=== PATIENT | female | born 1940 | race Caucasian/White ===

== ENCOUNTER → 2016-11-20 | Outpatient (CLI) | payer BC, OTHER ==
[2016-11-20 10:55] LABS: ALT/SGPT 28 U/L (12-78); BLOOD UREA NITROGEN 12 mg/dl (7-18); BUN/CREATININE RATIO 18.2 (10-20); CALCIUM 9.1 mg/dl (8.5-10.1); CARBON DIOXIDE 30 mmol/L (21-32); CHLORIDE 108 mmol/L (98-107); CHOLESTEROL 188 mg/dl (0-200); CREATININE 0.66 mg/dl (0.60-1.20); GLUCOSE 101 mg/dl (70-99); POTASSIUM 3.9 mmol/L (3.5-5.1); SODIUM 144 mmol/L (136-145); TRIGLYCERIDES 86 mg/dl (0-150); VERY LOW DENSITY LIPOPROT CALC 17 mg/dl
[2016-11-20 10:59] LABS: CHOLESTEROL/HDL RATIO 2.4; HDL CHOLESTEROL 77 mg/dl; LDL CHOLESTEROL CALCULATED 94 mg/dl
== END | disposition home or self-care (01) ==
LOC: C.LAB1850 09:15
PROVIDERS: ATTEND Family Medicine
DX: I10 Essential (primary) hypertension (principal); E78.5 Hyperlipidemia, unspecified

== ENCOUNTER → 2017-05-11 | Outpatient (CLI) | payer BC, OTHER ==
--- NOTE | 2017-05-12 07:57 | MAMMOGRAPHY REPORT ---
BILATERAL DIGITAL SCREENING MAMMOGRAM WITH CAD: 05/11/2017 CLINICAL HISTORY: Routine screening. Patient has no complaints. TECHNIQUE: Bilateral CC, MLO and repeat right MLO views were obtained. Current study was also evalua edith with a Computer Aided Detection (CAD) system. COMPARISON: Comparison is made to exams dated: 05/07/2016 mammogram - [facility], mammogram, 10/09/2013 mammogram, 09/19/2012 mammogram, 09/14/2011 mammogram, and 08/21/2010 mammogr am - [facility]. BREAST COMPOSITION: There are scattered areas of fibroglandular density in both breasts. FINDINGS: Surgical clips project over the left axilla. There are minimal vascular calcifications and a few benign-appearing calcifications in the breasts. No suspicious mass, architectural distortion or cluster of microcalcifications is seen. IMPRESSION: ACR BI-RADS CATEGORY 1: NEGATIVE There is no mammographic evidence of malignancy. A 1 year screening mammogram is recommended. The pa tient will receive written notification of the results. Approximately 10% of breast cancers are not detected with mammography. A negative mammographic report should not delay biopsy if a clinically suggestive mass is present. Shona Vivas M.D. ay/:05/11/2017 15:30:27 Photocopying Equipment Mechanic: Muriel SANTIAGO)(Ludmila), [facility] letter sent: Normal 1/2 BI-RADS Code: ACR BI-RADS Category 1: Negative
== END | disposition home or self-care (01) ==
LOC: C.MAMM 10:14
PROVIDERS: ATTEND Obstetrics & Gynecology
DX: Z12.31 Encounter for screening mammogram for malignant neoplasm of breast (principal)

== ENCOUNTER 2024-05-19 14:01 | Inpatient (IN) ==
[2024-05-19 15:22] LABS: Basophils # (auto) 0.03 K/uL (0.00-0.20); Basophils % (auto) 0.3 %; Hematocrit (blood only) 40.1 % (37.0-47.0); Immature Granulocytes # (auto) 0.05 K/uL (0.01-0.20); Immature Granulocytes % (auto) 0.5 %; Lymphocytes # (auto) 0.82 K/uL (1.20-3.40); Mean Corpuscular Hemoglobin 31.1 pg (25.0-34.0); Mean Corpuscular Hgb Conc 32.4 g/dL (32.0-36.0); Mean Corpuscular Volume 95.9 fL (80.0-100.0); Mean Platelet Volume 9.9 fL (9.4-12.4); Monocytes # (auto) 0.96 K/uL (0.11-0.59); Monocytes % (auto) 9.4 %; Neutrophils # (auto) 8.38 K/uL (1.40-6.50); Neutrophils % (auto) 81.8 %; Platelet Count 219 K/uL (130-400); RDW Coefficient of Variation 11.9 % (11.5-14.5); RDW Standard Deviation 41.3 fL (36.4-46.3); Red Blood Count 4.18 M/uL (4.20-5.40); White Blood Count 10.24 K/ul (4.8-10.8)
[2024-05-19 15:38] LABS: Alanine Aminotransferase 12 U/L (7-52); Albumin Globulin Ratio 1.3 (0.9-2); Albumin Level 4.1 gm/dl (3.4-5.0); Alkaline Phosphatase 77 U/L (34-104); Anion Gap 8 (3-11); Aspartate Aminotransferase 14 U/L (13-39); BUN Creatinine Ratio 12.5 (10-20); Bilirubin,Total 1.3 mg/dl (0.2-1.0); Blood Urea Nitrogen 13 mg/dl (6-23); Calcium 9.7 mg/dl (8.6-10.3); Carbon Dioxide 27 mmol/L (21-32); Chloride 98 mmol/L (98-107); Globulin 3.2 gm/dl (2.5-4.0); Glucose 164 mg/dl (70-99(Fasting)); Magnesium 1.8 mg/dl (1.7-2.4); Potassium 3.2 mmol/L (3.5-5.1); Sodium 133 mmol/L (136-145); Total Protein 7.3 gm/dl (6.0-8.3)
[2024-05-19 15:44] LABS: Troponin I High Sensitivity 9.4 pg/ml (0-14)
[2024-05-19 15:49] LABS: INR 1.1 (0.9-1.1); Partial Thromboplastin Time 28 Seconds (21-31); Prothrombin Time 11.4 Seconds (9.0-12.0)
--- NOTE | 2024-05-19 15:56 | Emergency Department Note ---
Impression & Plan Weakness, Fever, Acute pyelonephritis, S/P cystoscopy ED Provider Note NAME: QUENTIN BOND AGE: 84 SEX: F : 1940 ARRIVES VIA: Walk-In INFORMANT: [Patient] ED PROVIDER(S): [Hebert Hernadez MD] CHIEF COMPLAINT: Dr. Referred HISTORY OF PRESENT ILLNESS: The patient is an 84-year-old female who presents to the ER as advised by her physician's office. She had a cystoscopy with a bladder biopsy performed 9 days ago in [facility]. The patient states that initially, things were fine. In the last several days, she has had increased fatigue, no appetite, some bilateral flank pain and a temperature of 102 degrees. She has had chills. No urinary burning. No nausea or vomiting. No respiratory complaints. Her doctors office was concerned for infection and she was referred to our ER. PMHx/PSHx/Social Hx: See Below PHYSICAL EXAM: GENERAL: Patient is in no acute distress. HEENT: No acute trauma, normocephalic atraumatic, mucous membranes moist, no nasal congestion. NECK: No stridor, no adenopathy, no meningismus, trachea is midline. LUNGS: Clear to auscultation bilaterally, no wheeze, no rhonchi, breath sounds equal. HEART: Without murmurs gallops or rubs, regular rate and rhythm. Back: No flank discomfort to percussion. ABDOMEN: Soft, nontender, no peritonitis. EXTREMITIES: No cyanosis, full range of motion of all the joints without pain or difficulty. NEUROLOGIC: Oriented x 3, no acute motor or sensory deficits, no focal weakness. SKIN: No jaundice, no diaphoresis. DIFFERENTIAL DIAGNOSIS: Viral illness, UTI, pyelonephritis, urinary obstruction, pneumonia, among others. EMERGENCY DEPARTMENT PROCEDURES: MEDICAL DECISION MAKING: There is no leukocytosis. There is a normal hemoglobin and platelet count. No coagulopathy. Potassium mildly low but not in need of emergent correction. No renal failure. Lactic acid level is not elevated making severe sepsis unlikely. No concerning liver enzyme elevation. ECG shows a sinus tachycardia, no ischemia. Cardiac enzyme testing x 1 is not consistent with acute cardiac injury. Urinalysis does show findings of infection. Abdominal and pelvis CT shows a pyelonephritis, no urinary obstruction. On exam, the patient did not appear toxic or febrile. The patient was given 2 L of IV saline. She received IV ceftriaxone as antibiotic coverage. She was given IV Tylenol. The patient presents with symptoms consistent with UTI/pyelonephritis. She recently underwent a cystoscopy. I did speak with the patient's physician coverage at [facility]. Hospitalization is indicated. I spoke with the patient and her family, I spoke with case management, the on- call hospitalist was consulted. Prior/Outside records/notes reviewed: None ECG per my interpretation: Indication was possible sepsis. The ECG shows a sinus tachycardia with a rate of 108. There is LVH present. There is some nonspecific ST change. There is no acute ST elevation, no PVCs. The QTc is 434. Imaging/x-ray results per my interpretation: Chest x-ray did not show free air or pneumonia. Chronic Medical/Social conditions affecting care: Advanced age, recent cystoscopy. Care/Management discussed with: Case management, the on-call hospitalist. I did speak with the patient's physician coverage at [facility]. Level of care consideration(s): After review of the information above and other included data: --I believe the patient requires escalation of care to admission DISPOSITION: Admission Past Med/Surg History Problem List (Updated 05/19/24 @ 22:36 by Hebert Hernadez MD) S/P cystoscopy (Acute) Acute pyelonephritis (Acute) Fever (Acute) Weakness (Acute) Pyelonephritis Encounter for pre-operative examination Medical History History of melanoma MULTIPLE History of Mohs micrographic surgery for skin cancer MULTIPLE History of basal cell carcinoma MULTIPLE Breast cancer DX MAY 2020 , HX RADIATION 3 DAYS Overactive bladder Hyperlipidemia HTN (hypertension) Surgical History History of appendectomy History of cataract surgery RT History of colonoscopy History of lumpectomy of right breast JUL 19 2020 History of tonsillectomy Family History Other Family history of diabetes mellitus in father Social History Smoking Status: Never smoker Do You Dip or Chew Tobacco: No; Hx Alcohol Use: Yes Alcohol type: wine Preferred Language: Khmer Communication Ability: Effective Vamp Liner Required: No Beliefs That Will Affect Care: None Current Living Situation: Spouse Feels Safe at Home: Yes Assistive Devices: Glasses Allergies Allergies Allergy/AdvReac Type Severity Reaction Status Date / Time adhesive tape Allergy Redness of Unverified 10/03/22 16:31 Skin Home Meds Home Medications Medication Instructions Recorded Confirmed amlodipine 2.5 mg tablet 2.5 mg PO QAM 11/06/20 05/19/24 anastrozole 1 mg tablet 1 mg PO HS 11/06/20 05/19/24 fjgsloz-fgsqiwirmqodg-ktzrpwey 250 1 tab PO UD PRN Headache 11/06/20 05/19/24 mg-250 mg-65 mg tablet (Migraine Formula) atorvastatin 40 mg tablet 40 mg PO HS 11/06/20 05/19/24 biotin 1,000 mcg chewable tablet 1,000 mcg PO DAILY 11/06/20 05/19/24 calcium carbonate (Tums) 200 mg PO UD PRN Heartburn 11/06/20 05/19/24 diphenhydramine HCl 50 mg capsule 25 mg PO UD PRN Sleep 11/06/20 05/19/24 (Unisom SleepGels) ibuprofen 200 mg capsule 200 mg PO UD PRN Pain 11/06/20 05/19/24 psyllium husk 3.4 gram/5.4 gram 2 tsp PO QAM 11/06/20 05/19/24 oral powder (Metamucil) solifenacin 5 mg tablet 5 mg PO QAM 11/06/20 05/19/24 Lactobacil.acidophilus-Bifido.animalis 1 cap PO DAILY 10/03/22 05/19/24 5 billion cell sprinkle capsule (Probiotic) acetaminophen 500 mg tablet 500 - 1,000 mg PO BID PRN Pain 10/03/22 05/19/24 Results & Data (ED) Vital Signs Vital Signs - 24 hr 05/19/24 14:13 05/19/24 16:21 05/19/24 17:33 Temperature 36.9 C Temperature Source Oral Pulse Rate 111 H 101 H 93 H Pulse Rate [Apical] Pulse Rhythm Regular Pulse Strength Normal Respiratory Rate 18 21 Respiratory Effort / Characteristics Non-Labored Spontaneous Respiratory Depth Normal Respiratory Pattern Regular Blood Pressure 108/73 151/98 H Blood Pressure [Right Arm] Blood Pressure Mean 84 115 Blood Pressure Mean [Right Arm] Pulse Oximetry 93 95 Oxygen Delivery Method Room Air Room Air Sepsis Recent Fever Within 48 Hours Yes Sepsis New/Unexplained Change in Mental Status No Sepsis Action Taken by Nursing No Action Required 05/19/24 19:00 Temperature 37.8 C H Temperature Source Oral Pulse Rate Pulse Rate [Apical] 91 H Pulse Rhythm Pulse Strength Respiratory Rate 18 Respiratory Effort / Characteristics Non-Labored Spontaneous Respiratory Depth Normal Respiratory Pattern Regular Blood Pressure Blood Pressure [Right Arm] 170/80 H Blood Pressure Mean Blood Pressure Mean [Right Arm] 110 Pulse Oximetry 94 Oxygen Delivery Method Room Air Sepsis Recent Fever Within 48 Hours Sepsis New/Unexplained Change in Mental Status Sepsis Action Taken by Long-Term Medications Current Medication List: was personally reviewed by me Laboratory Data Attestation: I reviewed the patient's lab results. 05/19/24 14:53 05/19/24 14:53 Lab Results 05/19/24 Range/Units 14:53 WBC 10.24 (4.8-10.8) K/ul RBC 4.18 L (4.20-5.40) M/uL Hgb 13.0 (12.0-16.0) g/dl Hct 40.1 (37.0-47.0) % MCV 95.9 (80.0-100.0) fL MCH 31.1 (25.0-34.0) pg MCHC 32.4 (32.0-36.0) g/dL RDW Std Deviation 41.3 (36.4-46.3) fL RDW Coeff of Blanca 11.9 (11.5-14.5) % Plt Count 219 (130-400) K/uL MPV 9.9 (9.4-12.4) fL Immature Gran % (Auto) 0.5 % Neut % (Auto) 81.8 % Lymph % (Auto) 8.0 % Lee % (Auto) 9.4 % Eos % (Auto) 0.0 % Baso % (Auto) 0.3 % Neut # (Auto) 8.38 H (1.40-6.50) K/uL Lymph # (Auto) 0.82 L (1.20-3.40) K/uL Lee # (Auto) 0.96 H (0.11-0.59) K/uL Eos # (Auto) 0.00 (0.00-0.50) K/uL Baso # (Auto) 0.03 (0.00-0.20) K/uL Immature Gran # (Auto) 0.05 (0.01-0.20) K/uL PT 11.4 (9.0-12.0) Seconds INR 1.1 (0.9-1.1) APTT 28 (21-31) Seconds PTT Ratio 1.0 Sodium 133 L (136-145) mmol/L Potassium 3.2 L (3.5-5.1) mmol/L Chloride 98 (98-107) mmol/L Carbon Dioxide 27 (21-32) mmol/L Anion Gap 8 (3-11) BUN 13 (6-23) mg/dl Creatinine 1.04 (0.6-1.2) mg/dl Est Cr Clr Drug Dosing Not Reportable eGFR 52.34 BUN/Creatinine Ratio 12.5 (10-20) Glucose 164 H (70-99(Fasting)) mg/dl Lactate 1.3 (0.4-2.0) mmol/L Calcium 9.7 (8.6-10.3) mg/dl Magnesium 1.8 (1.7-2.4) mg/dl Total Bilirubin 1.3 H (0.2-1.0) mg/dl AST 14 (13-39) U/L ALT 12 (7-52) U/L Alkaline Phosphatase 77 (34-104) U/L Troponin I High Sens 9.4 (0-14) pg/ml Total Protein 7.3 (6.0-8.3) gm/dl Albumin 4.1 (3.4-5.0) gm/dl Globulin 3.2 (2.5-4.0) gm/dl Albumin/Globulin Ratio 1.3 (0.9-2) Procalcitonin 0.30 (0-0.5) ng/ml Administered Medications Atorvastatin Calcium (Atorvastatin 40 Mg Tab) 40 mg PO HS CHRISTIANO Stop: 06/18/24 21:00 Last Admin: 05/19/24 22:03 Dose: 40 mg Documented By: AMP Enoxaparin Sodium (Enoxaparin Inj 40 Mg/0.4 Ml Syr) 40 mg SQ Q24H CHRISTIANO Stop: 06/18/24 21:59 Last Admin: 05/19/24 22:04 Dose: Not Given Documented By: AMP Cefepime HCl (Maxipime 2000mg) 2,000 mg in 20 mls @ 5 mls/min IV Q12H [facility]; Protocol Stop: 05/29/24 21:29 Last Admin: 05/19/24 22:04 Dose: 5 mls/min Documented By: MIRA Lactated Ringer's (Lr) 1,000 mls @ 80 mls/hr IV .[id number] CHRISTIANO Stop: 06/18/24 21:00 Last Admin: 05/19/24 22:02 Dose: 80 mls/hr Documented By: MIRA Melatonin (Melatonin 3 Mg Tab) 3 mg PO HS PRN PRN Reason: Sleep Stop: 06/18/24 21:00 Last Admin: 05/19/24 22:03 Dose: 3 mg Documented By: MIRA Discontinued Medications Sodium Chloride (Nss) 1,000 mls @ 999 mls/hr IV .Q1H1M ONE Stop: 05/19/24 16:24 Last Infusion: 05/19/24 18:06 Dose: Infused Documented By: Admin: 05/19/24 16:22 Dose: 999 mls/hr Documented By: Sodium Chloride (Nss) 1,000 mls @ 999 mls/hr IV .Q1H1M ONE Stop: 05/19/24 16:43 Last Infusion: 05/19/24 17:22 Dose: Infused Documented By: Admin: 05/19/24 16:20 Dose: 999 mls/hr Documented By: MR Ceftriaxone Sodium (Rocephin) 2,000 mg in 50 mls @ 100 mls/hr IV NOW STA Stop: 05/19/24 16:46 Last Infusion: 05/19/24 18:05 Dose: Infused Documented By: Admin: 05/19/24 17:35 Dose: 100 mls/hr Documented By: MR Acetaminophen (Ofirmev) 1,000 mg in 100 mls @ 400 mls/hr IV NOW STA Stop: 05/19/24 17:59 Last Infusion: 05/19/24 19:12 Dose: Infused Documented By: Admin: 05/19/24 18:57 Dose: 400 mls/hr Documented By: ISIDORO Potassium Chloride (Potassium Chloride Crtab 20 Meq Tabcr) 40 meq PO NOW STA Stop: 05/19/24 21:02 Last Admin: 05/19/24 22:03 Dose: 40 meq Documented By: MIRA Imaging Data Radiologist's Impression: Chest X-Ray 05/19/24 14:21 XR chest 1V not portable CLINICAL HISTORY: Sepsis. COMPARISON STUDY: Chest radiograph August 07, 2019. FINDINGS: Lung volumes are normal. There is no pneumothorax or pleural effusion. There is no consolidation to suggest pneumonia. Several calcified nodules are benign. These are unchanged. There are right breast the left maxillary surgical clips. Cardiomegaly is unchanged. No evidence for pulmonary edema. IMPRESSION: No acute cardiopulmonary findings. ACT 112: Negative or not required by law. Electronically signed by: Gee Escobar M.D. 05/19/2024 3:58 PM Abdomen/Pelvis CT 05/19/24 15:23 CT SCAN OF THE ABDOMEN AND PELVIS WITHOUT IV CONTRAST CLINICAL HISTORY: Flank pain. Fever. COMPARISON STUDY: No priors. TECHNIQUE: CT scan of the abdomen and pelvis is performed from the lung bases to the proximal femora. Images are reviewed in the axial, sagittal, and coronal planes. IV contrast was not administered for this examination. A dose lowering technique was utilized adhering to the principles of ALARA. CT DOSE: 751.06 mGy.cm FINDINGS: Lung bases: The heart is top normal in size and without pericardial effusion. There is bibasilar scarring/atelectasis. No airspace consolidation or pleural effusion is seen. A small hiatal hernia is noted. Liver: The unenhanced liver is normal in size, contour, and attenuation. There is no intrahepatic biliary ductal dilatation. Gallbladder: Unremarkable. Spleen: Normal in size and attenuation. Pancreas: The unenhanced pancreas is mildly atrophic and grossly unremarkable. Adrenal glands: Unremarkable. Kidneys: The unenhanced kidneys are normal in size and without hydronephrosis. No renal calculi are identified and there is no ureteral stone. There is urothelial thickening within the right renal pelvis and ureter with right-sided perinephric stranding and fluid. A 10 mm cyst is noted on the left. Abdominal vasculature: The abdominal aorta is normal in course and caliber noting advanced atherosclerotic calcification. Bowel: There is moderate to advanced colonic diverticulosis without CT evidence of acute diverticulitis. No bowel obstruction is seen. Mild/moderate fecal retention is seen throughout the colon. The appendix is not visualized. Peritoneum: There is no intraperitoneal free air or abdominal ascites. There is a small fat-containing umbilical hernia. Lymphadenopathy: None. Pelvic viscera: The bladder wall is thickened and there is pericystic duration. The uterus is surgically absent. No adnexal lesion is seen. Skeletal structures: The skeletal structures are osteopenic. There is advanced lumbosacral spondylosis and mild scoliosis. Sclerotic change is noted in the sacroiliac joints. Arthritic change is noted in the hips. No lytic or blastic lesions are seen. IMPRESSION: 1. Findings suggest cystitis with ascending urinary tract infection/pyelonephritis on the right. Correlate with clinical findings and urinalysis. 2. No renal calculi are identified. 3. Colonic diverticulosis without CT evidence of acute diverticulitis. 4. Additional findings as above. ACT 112: Negative or not required by law. Electronically signed by: Hebert Jean M.D. 05/19/2024 4:50 PM Discharge Plan Visit Data Chief Complaint: Referred by Doctor Stated Complaint: POSSIBLE INFECTION, KIDNEY ED Provider: Hebert Hernadez Discharge Problem: Weakness, Fever, Acute pyelonephritis, S/P cystoscopy Patient Disposition: Admitted As Inpatient Condition: Fair Discharge Instructions Interventions: ED Discharge Assessment Last Done: 05/19/24 20:50 Discharge Problem: Fever Qualifiers: Fever type: unspecified Qualified Code(s): R50.9 - Fever, unspecified
--- NOTE | 2024-05-19 15:59 | XRay Report ---
XR chest 1V not portable CLINICAL HISTORY: Sepsis. COMPARISON STUDY: Chest radiograph August 07, 2019. FINDINGS: Lung volumes are normal. There is no pneumothorax or pleural effusion. There is no consolid ation to suggest pneumonia. Several calcified nodules are benign. These are unchanged. There are righ t breast the left maxillary surgical clips. Cardiomegaly is unchanged. No evidence for pulmonary carri a. IMPRESSION: No acute cardiopulmonary findings. ACT 112: Negative or not required by law. Electronically signed by: Gee Escobar M.D. 05/19/2024 3:58 PM
[2024-05-19 16:06] LABS: Appearance Urine Turbid (Clear); Bacteria Urine Automated 4+ (None Seen); Bilirubin Urine Negative (Negative); Blood Urine 2+ (Negative); Cast Urine Automated >20 /lpf (0-2); Color Urine Dark Yellow; Glucose Urine UA Negative (Negative); Ketones Urine Trace (Negative); Leukocyte Esterase Urine 3+ (Negative); Nitrite Urine Negative (Negative); Protein Urine 3+ (Negative); Specific Gravity Urine 1.014 (1.000-1.030); Urobilinogen Urine Negative (Negative); WBC Urine Automated >50 /hpf (0-5)
[2024-05-19] MEDS: SODIUM CHLORIDE 0.9% 1,000 ML IV ONE ×2 (16:20→16:22)
--- NOTE | 2024-05-19 16:51 | CT Scan Report ---
CT SCAN OF THE ABDOMEN AND PELVIS WITHOUT IV CONTRAST CLINICAL HISTORY: Flank pain. Fever. COMPARISON STUDY: No priors. TECHNIQUE: CT scan of the abdomen and pelvis is performed from the lung bases to the proximal femora. Images are reviewed in the axial, sagittal, and coronal planes. IV contrast was not administered for this examination. A dose lowering technique was utilized adhering to the principles of ALARA. CT DOSE: 751.06 mGy.cm FINDINGS: Lung bases: The heart is top normal in size and without pericardial effusion. There is bibasilar scar ring/atelectasis. No airspace consolidation or pleural effusion is seen. A small hiatal hernia is not ed. Liver: The unenhanced liver is normal in size, contour, and attenuation. There is no intrahepatic janell iary ductal dilatation. Gallbladder: Unremarkable. Spleen: Normal in size and attenuation. Pancreas: The unenhanced pancreas is mildly atrophic and grossly unremarkable. Adrenal glands: Unremarkable. Kidneys: The unenhanced kidneys are normal in size and without hydronephrosis. No renal calculi are i dentified and there is no ureteral stone. There is urothelial thickening within the right renal pelvi s and ureter with right-sided perinephric stranding and fluid. A 10 mm cyst is noted on the left. Abdominal vasculature: The abdominal aorta is normal in course and caliber noting advanced atheroscle rotic calcification. Bowel: There is moderate to advanced colonic diverticulosis without CT evidence of acute diverticulit is. No bowel obstruction is seen. Mild/moderate fecal retention is seen throughout the colon. The diane endix is not visualized. Peritoneum: There is no intraperitoneal free air or abdominal ascites. There is a small fat-containin g umbilical hernia. Lymphadenopathy: None. Pelvic viscera: The bladder wall is thickened and there is pericystic duration. The uterus is surgica lly absent. No adnexal lesion is seen. Skeletal structures: The skeletal structures are osteopenic. There is advanced lumbosacral spondylosi s and mild scoliosis. Sclerotic change is noted in the sacroiliac joints. Arthritic change is noted i n the hips. No lytic or blastic lesions are seen. IMPRESSION: 1. Findings suggest cystitis with ascending urinary tract infection/pyelonephritis on the right. Rajni elate with clinical findings and urinalysis. 2. No renal calculi are identified. 3. Colonic diverticulosis without CT evidence of acute diverticulitis. 4. Additional findings as above. ACT 112: Negative or not required by law. Electronically signed by: Hebert Jean M.D. 05/19/2024 4:50 PM
[2024-05-19] MEDS: cefTRIAXone SODIUM 2,000 MG/50 ML BAG IV STA (17:35)
--- NOTE | 2024-05-19 18:48 | Electrocardiogram Report ---
Test Reason : Blood Pressure : */* mmHG Vent. Rate : 108 BPM Atrial Rate : 108 BPM P-R Int : 188 ms QRS Dur : 100 ms QT Int : 324 ms P-R-T Axes : -3 -10 1 degrees QTcB Int : 434 ms Sinus tachycardia Left ventricular hypertrophy with repolarization abnormality Poor R wave progression, consider anterior IA vs. lead placement vs. LVH Abnormal ECG No previous ECGs available Confirmed by Antione Beach ([id number]) on 05/19/2024 6:48:22 PM Referred By: Confirmed By: Antione Beach
[2024-05-19] MEDS: ACETAMINOPHEN 1,000 MG/100 ML VIAL IV STA (18:57)
--- NOTE | 2024-05-19 19:05 | History & Physical Report ---
Date of Service May 19, 2024 Assessment & Plan (1) History of melanoma: (2) Breast cancer: (3) Hyperlipidemia: (4) HTN (hypertension): (5) Pyelonephritis: Plan Assessment and plan: Bilateral pyelonephritis Acute UTI S/p cystoscopy with bladder biopsy x 9 days ago UTI likely secondary to instrumentation, continue IV cefepime Awaiting urine culture/blood cultures, UA grossly positive Tmax of 102, no leukocytosis, monitor closely Hx HTN/HLD: Continue amlodipine/statin Hx breast CA: Hx of bladder CA: Both in remission, cystoscopy with bladder biopsy for surveillance Hold anastrozole for now until infection clears A total of 45 minutes was spent on chart review/diagnostic testing review/discussion with consultants/facilitating plan of care Full code DVT prophylaxis: Lovenox History of Present Illness Chief Complaint: Flank pain, fever Primary Care Provider: Rodolfo Ryan MD The patient is a 84-year-old female with a past medical history of bladder cancer, breast cancerboth in remission, on anastrozole, HTN, HLD, migraines who presents to the ED today on 06/08 with complaints of fevers and flank pain x 2 days. Report 9 days ago having a cystoscopy with a bladder biopsy completed in [facility]. For surveillance for her history of bladder cancer. Reported feeling okay over the past week but over the past few days started developing right flank pain, feeling weaker and fatigued, and had a Tmax of 102 at home. She otherwise denies any abdominal pain/nausea/vomiting/diarrhea. She denies any pain with urination. On arrival to the ED, her labs are fairly unremarkable, her UA was grossly positive Her abdominal/pelvis CT showed bilateral pyelonephritis, she was given IV ceftriaxone and IV fluids in the ED and will be admitted to the hospital for further management of presumed UTI Allergies Allergy/AdvReac Type Severity Reaction Status Date / Time adhesive tape Allergy Redness of Unverified 10/03/22 16:31 Skin Home Medications Medication Instructions Recorded Confirmed Type amlodipine 2.5 mg tablet 2.5 mg PO QAM 11/06/20 05/19/24 History anastrozole 1 mg tablet 1 mg PO HS 11/06/20 05/19/24 History knkuuid-iweqjykqbdhjm-ooipgxga 250 1 tab PO UD PRN Headache 11/06/20 05/19/24 History mg-250 mg-65 mg tablet (Migraine Formula) atorvastatin 40 mg tablet 40 mg PO HS 11/06/20 05/19/24 History biotin 1,000 mcg chewable tablet 1,000 mcg PO DAILY 11/06/20 05/19/24 History calcium carbonate (Tums) 200 mg PO UD PRN Heartburn 11/06/20 05/19/24 History diphenhydramine HCl 50 mg capsule 25 mg PO UD PRN Sleep 11/06/20 05/19/24 History (Unisom SleepGels) ibuprofen 200 mg capsule 200 mg PO UD PRN Pain 11/06/20 05/19/24 History psyllium husk 3.4 gram/5.4 gram 2 tsp PO QAM 11/06/20 05/19/24 History oral powder (Metamucil) solifenacin 5 mg tablet 5 mg PO QAM 11/06/20 05/19/24 History Lactobacil.acidophilus-Bifido.animalis 1 cap PO DAILY 10/03/22 05/19/24 History 5 billion cell sprinkle capsule (Probiotic) acetaminophen 500 mg tablet 500 - 1,000 mg PO BID PRN Pain 10/03/22 05/19/24 History Past Med/Surg History Problem List (Updated 05/19/24 @ 22:36 by Hebert Hernadez MD) S/P cystoscopy (Acute) Acute pyelonephritis (Acute) Fever (Acute) Weakness (Acute) Pyelonephritis Encounter for pre-operative examination Medical History History of melanoma MULTIPLE History of Mohs micrographic surgery for skin cancer MULTIPLE History of basal cell carcinoma MULTIPLE Breast cancer DX MAY 2020 , HX RADIATION 3 DAYS Overactive bladder Hyperlipidemia HTN (hypertension) Surgical History History of appendectomy History of cataract surgery RT History of colonoscopy History of lumpectomy of right breast JUL 19 2020 History of tonsillectomy Family History Other Family history of diabetes mellitus in father Social History Smoking Status: Never smoker Do You Dip or Chew Tobacco: No; Hx Alcohol Use: Yes Alcohol type: wine Preferred Language: Korean Communication Ability: Effective 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: No Beliefs That Will Affect Care: None Current Living Situation: Spouse Feels Safe at Home: Yes Assistive Devices: Glasses Review of Systems Review of Systems: All systems reviewed & are unremarkable except as noted in HPI & below Physical Exam Constitutional: WD/WN, vitals as above Eyes: PERRL, conjunctivae normal, anicteric sclerae ENMT: external ear and nose normal, oropharynx normal Neck: trachea midline, no thyromegaly Respiratory: normal respiratory effort, lungs clear to auscultation Cardiovascular: RRR, no murmur, no edema Chest (Breasts): normal inspection/palpation of breasts Gastrointestinal (Abdomen): normal bowel sounds, soft, nontender, no hepatosplenomegaly (Flank pain) Inspection/Auscultation: abdomen normal to inspection and normal bowel sounds Percussion/Palpation: abdomen nontender and no guarding Musculoskeletal: no cyanosis or clubbing, extremities motor strength 5/5 Skin: no rashes, warm and dry Neurologic: PERRL, EOMI, accommodation nl, no face palsy, no dysarthria Psychiatric: A+Ox3, euthymic affect Lymphatic: no cervical or axillary lymphadenopathy Results & Data Results & Data Vital Signs (Past 12 Hours) Vital Signs Temp Pulse Resp BP Pulse Ox O2 Del Method 05/19/24 17:33 93 H 21 151/98 H 95 Room Air 05/19/24 16:21 101 H 05/19/24 14:13 36.9 C 111 H 18 108/73 93 Room Air Laboratory Results Laboratory Results WBC 10.24 K/ul (4.8-10.8) 05/19/24 14:53 RBC 4.18 M/uL (4.20-5.40) L 05/19/24 14:53 Hgb 13.0 g/dl (12.0-16.0) 05/19/24 14:53 Hct 40.1 % (37.0-47.0) 05/19/24 14:53 MCV 95.9 fL (80.0-100.0) 05/19/24 14:53 MCH 31.1 pg (25.0-34.0) 05/19/24 14:53 MCHC 32.4 g/dL (32.0-36.0) 05/19/24 14:53 RDW Std Deviation 41.3 fL (36.4-46.3) 05/19/24 14:53 RDW Coeff of Blanca 11.9 % (11.5-14.5) 05/19/24 14:53 Plt Count 219 K/uL (130-400) 05/19/24 14:53 MPV 9.9 fL (9.4-12.4) 05/19/24 14:53 Immature Gran % (Auto) 0.5 % 05/19/24 14:53 Neut % (Auto) 81.8 % 05/19/24 14:53 Lymph % (Auto) 8.0 % 05/19/24 14:53 Bay % (Auto) 9.4 % 05/19/24 14:53 Eos % (Auto) 0.0 % 05/19/24 14:53 Baso % (Auto) 0.3 % 05/19/24 14:53 Neut # (Auto) 8.38 K/uL (1.40-6.50) H 05/19/24 14:53 Lymph # (Auto) 0.82 K/uL (1.20-3.40) L 05/19/24 14:53 Bay # (Auto) 0.96 K/uL (0.11-0.59) H 05/19/24 14:53 Eos # (Auto) 0.00 K/uL (0.00-0.50) 05/19/24 14:53 Baso # (Auto) 0.03 K/uL (0.00-0.20) 05/19/24 14:53 Immature Gran # (Auto) 0.05 K/uL (0.01-0.20) 05/19/24 14:53 PT 11.4 Seconds (9.0-12.0) 05/19/24 14:53 INR 1.1 (0.9-1.1) 05/19/24 14:53 APTT 28 Seconds (21-31) 05/19/24 14:53 PTT Ratio 1.0 05/19/24 14:53 Sodium 133 mmol/L (136-145) L 05/19/24 14:53 Potassium 3.2 mmol/L (3.5-5.1) L 05/19/24 14:53 Chloride 98 mmol/L (98-107) 05/19/24 14:53 Carbon Dioxide 27 mmol/L (21-32) 05/19/24 14:53 Anion Gap 8 (3-11) 05/19/24 14:53 BUN 13 mg/dl (6-23) 05/19/24 14:53 Creatinine 1.04 mg/dl (0.6-1.2) 05/19/24 14:53 Est Cr Clr Drug Dosing Not Reportable 05/19/24 14:53 eGFR 52.34 05/19/24 14:53 BUN/Creatinine Ratio 12.5 (10-20) 05/19/24 14:53 Glucose 164 mg/dl (70-99(Fasting)) H 05/19/24 14:53 Lactate 1.3 mmol/L (0.4-2.0) 05/19/24 14:53 Calcium 9.7 mg/dl (8.6-10.3) 05/19/24 14:53 Magnesium 1.8 mg/dl (1.7-2.4) 05/19/24 14:53 Total Bilirubin 1.3 mg/dl (0.2-1.0) H 05/19/24 14:53 AST 14 U/L (13-39) 05/19/24 14:53 ALT 12 U/L (7-52) 05/19/24 14:53 Alkaline Phosphatase 77 U/L (34-104) 05/19/24 14:53 Troponin I High Sens 9.4 pg/ml (0-14) 05/19/24 14:53 Total Protein 7.3 gm/dl (6.0-8.3) 05/19/24 14:53 Albumin 4.1 gm/dl (3.4-5.0) 05/19/24 14:53 Globulin 3.2 gm/dl (2.5-4.0) 05/19/24 14:53 Albumin/Globulin Ratio 1.3 (0.9-2) 05/19/24 14:53 Procalcitonin 0.30 ng/ml (0-0.5) 05/19/24 14:53 Urine Color Dark Yellow 05/19/24 Unknown Urine Appearance Turbid (Clear) A 05/19/24 Unknown Urine pH 6.0 (4.5-7.5) 05/19/24 Unknown Ur Specific [place] 1.014 (1.000-1.030) 05/19/24 Unknown Urine Protein 3+ (Negative) H 05/19/24 Unknown Urine Glucose (UA) Negative (Negative) 05/19/24 Unknown Urine Ketones Trace (Negative) H 05/19/24 Unknown Urine Blood 2+ (Negative) H 05/19/24 Unknown Urine Nitrite Negative (Negative) 05/19/24 Unknown Urine Bilirubin Negative (Negative) 05/19/24 Unknown Urine Urobilinogen Negative (Negative) 05/19/24 Unknown Ur Leukocyte Esterase 3+ (Negative) H 05/19/24 Unknown Urine WBC (Auto) >50 /hpf (0-5) H 05/19/24 Unknown Urine RBC (Auto) 11-20 /hpf (0-2) H 05/19/24 Unknown U Hyaline Cast (Auto) >20 /lpf (0-2) H 05/19/24 Unknown U Epithel Cells (Auto) 3-5 /hpf (0-2) H 05/19/24 Unknown Urine Bacteria (Auto) 4+ (None Seen) H 05/19/24 Unknown Impressions Chest X-Ray 05/19/24 14:21 XR chest 1V not portable CLINICAL HISTORY: Sepsis. COMPARISON STUDY: Chest radiograph August 07, 2019. FINDINGS: Lung volumes are normal. There is no pneumothorax or pleural effusion. There is no consolidation to suggest pneumonia. Several calcified nodules are benign. These are unchanged. There are right breast the left maxillary surgical clips. Cardiomegaly is unchanged. No evidence for pulmonary edema. IMPRESSION: No acute cardiopulmonary findings. ACT 112: Negative or not required by law. Electronically signed by: Gee Escobar M.D. 05/19/2024 3:58 PM Abdomen/Pelvis CT 05/19/24 15:23 CT SCAN OF THE ABDOMEN AND PELVIS WITHOUT IV CONTRAST CLINICAL HISTORY: Flank pain. Fever. COMPARISON STUDY: No priors. TECHNIQUE: CT scan of the abdomen and pelvis is performed from the lung bases to the proximal femora. Images are reviewed in the axial, sagittal, and coronal planes. IV contrast was not administered for this examination. A dose lowering technique was utilized adhering to the principles of ALARA. CT DOSE: 751.06 mGy.cm FINDINGS: Lung bases: The heart is top normal in size and without pericardial effusion. There is bibasilar scarring/atelectasis. No airspace consolidation or pleural effusion is seen. A small hiatal hernia is noted. Liver: The unenhanced liver is normal in size, contour, and attenuation. There is no intrahepatic biliary ductal dilatation. Gallbladder: Unremarkable. Spleen: Normal in size and attenuation. Pancreas: The unenhanced pancreas is mildly atrophic and grossly unremarkable. Adrenal glands: Unremarkable. Kidneys: The unenhanced kidneys are normal in size and without hydronephrosis. No renal calculi are identified and there is no ureteral stone. There is urothelial thickening within the right renal pelvis and ureter with right-sided perinephric stranding and fluid. A 10 mm cyst is noted on the left. Abdominal vasculature: The abdominal aorta is normal in course and caliber noting advanced atherosclerotic calcification. Bowel: There is moderate to advanced colonic diverticulosis without CT evidence of acute diverticulitis. No bowel obstruction is seen. Mild/moderate fecal retention is seen throughout the colon. The appendix is not visualized. Peritoneum: There is no intraperitoneal free air or abdominal ascites. There is a small fat-containing umbilical hernia. Lymphadenopathy: None. Pelvic viscera: The bladder wall is thickened and there is pericystic duration. The uterus is surgically absent. No adnexal lesion is seen. Skeletal structures: The skeletal structures are osteopenic. There is advanced lumbosacral spondylosis and mild scoliosis. Sclerotic change is noted in the sacroiliac joints. Arthritic change is noted in the hips. No lytic or blastic lesions are seen. IMPRESSION: 1. Findings suggest cystitis with ascending urinary tract infection/pyelonephritis on the right. Correlate with clinical findings and urinalysis. 2. No renal calculi are identified. 3. Colonic diverticulosis without CT evidence of acute diverticulitis. 4. Additional findings as above. ACT 112: Negative or not required by law. Electronically signed by: Hebert Jean M.D. 05/19/2024 4:50 PM Supervising Physician Co-Signing Physician Notes Attending Addendum: Case reviewed with the advanced practitioner. I have personally performed a history and physical examination on the patient. I have reviewed the advanced practitioner's documentation on the date of service referenced in note, and I agree with, and take responsibility for the plan of care. please refer to her notes for full details patient seen and examined, records reviewed by myself as well on exam, patient seen resting in bed, comfortable feeling better since admission no chest pain, dyspnea, palpitations, dizziness no back pain, abdominal pain no other symptoms VS noted and reviewed oriented x 3, not in distress, speaks in sentences with no effort nor accessory muscle use normal rate, regular rhythm, no murmurs clear breath sounds bilaterally non distended, soft, nontender, no CVA tenderness no bipedal edema, erythema, warmth no neuro deficits all labs, imaging noted and reviewed ASSESSMENT AND PLAN ACUTE CYSTITIS, PYELONEPHRITIS, R/O BACTEREMIA S/P CYSTOSCOPY, BLADDER BIOPSY 9 DAYS PRIOR TO ADMISSION ff up cultures IV Cefepime other diagnoses and plan of care as per advanced practitioner's notes Олег Phillips MD
[2024-05-19] MEDS ORDERED: hydrALAZINE HCL 20 MG/ML VIAL IV PRN (21:01)
[2024-05-19] MEDS: LACTATED RINGER'S 1,000 ML IV SCH (22:02)
[2024-05-19] MEDS: MELATONIN 3 MG TAB PO PRN (22:03)
[2024-05-19] MEDS: POTASSIUM CHLORIDE CRTAB 20 MEQ TABCR PO STA (22:03)
[2024-05-19] MEDS: ATORVASTATIN 40 MG TAB PO SCH (22:03)
[2024-05-19] MEDS: ENOXAPARIN INJ 40 MG/0.4 ML SYR SQ SCH (22:04)
[2024-05-19] MEDS: CEFEPIME 2000MG 2,000 MG/20 ML SYR IV SCH (22:04)
--- OUTSIDE RECORDS SUMMARY | 2024-05-20 00:42 | External Medical Summary | Summary of Care ---
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 Role Phone Rodolfo Figueroa MD Primary Care Provider + Reason for Visit * Reason Comments eRx-Medication Refill Encounter Details Date Type Department Care Team (Late st Contact Info) Description 05/16/2024 Refill General Internal Medicine [facility] [address] [facility] [address] Rodolfo Figueroa MD [address] [place] [address] Pure hypercholesterolemia Allergies Active Allergy Reactions Criticality Noted Date Comments Lisinopril & Diet Manage Prod Cough Medium 2017 documented as of this encounter (statuses as of 05/17/2024) Medications Medication Sig Dispensed Refills Start Date End Date Status Inulin (METAMUCIL CLEAR & NATURAL) powder Take by mouth daily. Active Carboxymethylcellulose Sodium 0.25 % Ophthalmic Solution Daily as needed as directed 8 Active acetaminophen (TYLENOL) 500 MG Tablet 1-2 daily as needed 100 Tab 8 Active Refresh 1.4-0.6 % Ophthalmic Solution (polyvinyl alcohol-povidone PF) 1 Drop as needed. Active Doxylamine Succinate (Sleep) 25 MG Oral Tablet Take 0.5 Tablets by mouth at bedtime as needed. Active Anastrozole 1 MG Oral Tablet (Arimidex) Take 1 Tablet by mouth in the morning. Take 1 pill by mouth daily. 2 Active Systane 0.4-0.3 % Ophthalmic Solution (Artificial Tears) Instill into both eyes as needed for Dry eyes. Active NATURAL SUPPLEMENT Take 1 Capsule by mouth in the morning. Nicotinamide . Active amLODIPine Besylate 2.5 MG Oral Tablet (Norvasc)Indications:HTN , goal below 150/90 Take 1 Tablet (2.5 mg) by mouth in the morning. 90 Tablet 1 4 Active Atorvastatin Calcium 40 MG Oral Tablet (Lipitor)Indications:Pur e hypercholesterolemia Take 1 Tab by mouth daily. 90 Tablet 4 Active Atorvastatin Calcium 40 MG Oral Tablet (Lipitor)Indications:Pur e hypercholesterolemia Take 1 Tab by mouth daily. 90 Tablet 1 4 024 Discontinued documented as of this encounter (statuses as of 05/17/2024) Active Problems Problem Noted Date Diagnosed Date Right renal mass 03/20/2022 Malignant neoplasm of overlapping sites of bladd er 11/27/2021 Isolated proteinuria 09/25/2021 Malignant neoplasm of upper- outer quadrant of right breast in female, estrogen receptor positive 06/10/2020 History of melanoma excision 03/17/2019 HTN, goal below 150/90 02/04/2018 Pure hypercholesterolemia 02/04/2018 documented as of this encounter (statuses as of 05/17/2024) Resolved Problems Problem Noted Date Diagnosed Date Resolved Date Advanced directives, counseling/discussion 09/29/2019 07/22/2023 Overview: She thinks she has one but has not been able to locate it Cystocele, lateral 02/25/2017 2 CAITLIN (stress urinary incontinence, female) 02/25/2017 11/27/2021 Urge incontinence of urine 02/25/2017 0 11/27/2021 documented as of this encounter (statuses as of 05/17/2024) Immunizations Name Administration Dates Next Due COVID-19 mRNA, LNP-s, No Pre serve, 2-Dose Series (Moderna) 10/13/2020,09/05/2020 COVID-19, mRNA, LNP-s, PF, B ooster, 100mcg/0.5mg (Moderna) 01/10/2022,06/12/2021 Covid-19, Mrna, Lnp-s, Pf, B ivalent, 30 Mcg, IM, 12 yrs and above (Pfizer) 06/03/2022 Pneumococcal Conjugate Vacc, 13 Valent (Prevnar) 03/17/2019 Pneumococcal Polysaccharide PPV23 (Pneumovax) 06/10/2020 Season Influenza, Quad, PF, Adjuvanted, 65+ Yrs, IM (FLUAD) 06/03/2022,04/30/2021,04/30/2020 Seasonal Influenza, High Dos e, Trivalent, PF, IM (Fluzone HD) 08/17/2016 Seasonal Influenza, PF, 6 M & above, IM , (FluLaval or Fluzone) 05/20/2018 Seasonal Influenza, Trivalen t, Adjuvanted, 65+ YRS, PF, (Fluad) 06/30/2019 TDAP (age 10 and older)(Boostrix) 04/18/2019, Zoster Vaccine Recombinant (Shingrix) 02/07/2019 ,11/18/2018,08/16/2014 documented as of this encounter Social History Tobacco Use Types Packs/Day Years Used Date Smoking Tobacco: Never Smokeless Tobacco: Never Alcohol Use Standard Drinks/Week Comments Yes 0 (1 standard drink = 0.6 oz pur e alcohol) PHQ-2 Answer Date Recorded PHQ Adult Total Score 0 07/20/2022 Hunger Vital Sign Answer Date Recorded Worried About Running Out of Food in the Last Ye ar Never true 09/26/2019 Ran Out of Food in the Last Year Never true 09/26/2019 Utilities Answer Date Recorded Do you have trouble paying y our heating, water, or electric bill? (Adult - for ages 18 years and over) Not on file 02/01/2024 Is your family able to pay t he heat, water, or electric bill? (Household - for ages 0-17 years) Not on file 02/01/2024 Does your family have access to good internet? (Household - for ages 0-17 years) Not on file 02/01/2024 Social Connections Answer Date Recorded How often do you feel lonely or isolated from those around you? (Adult - for ages 18 years and over) Not on file 02/01/2024 Sex and Gender Information Value Date Recorded Sex Assigned at Not on file Gender Identity Not on file Sexual Orientation Not on file Job Start Date Occupation Industry Not on file Not on file Not on file documented as of this encounter Miscellaneous Notes * Telephone Encounter - Mikki Griffin [facility] - 05/17/2024 1:42 PM EDTSigned Prescriptions: Disp Refills Atorvastatin Calcium 40 MG Oral Tablet (Li*90 Tab*0 Sig: Take 1Tab by mouth daily.Authorizing Provider: RODOLFO FIGUEROA User: MIKKI GRIFFIN--- * Telephone Encounter - Mikki Griffin [facility] - 05/17/2024 1:41 PM EDT Lipid panel ordered. Due to patient age may complete with next routine. Thank you, Mikki Griffin, PharmD Clinical Pharmacist [facility] [phone] 05/17/2024, 1:41 PM documented in this encounter Plan of Treatment Upcoming Encounters Date Type Department Care Team (Late st Contact Info) Description 05/22/2024 10:30 AM EDT Imaging Radiology [facility] [address] [address] [place] [address] 07/26/2024 10:00 AM EST Office Visit General Internal Medicine [facility] [place] [address] [place] [address] Rodolfo Figueroa MD [address] [facility] [place] [address] Scheduled Orders Name Type Priority Associated Diagnoses Orde r Schedule LIPID PANEL WITH DIRECT LDL IF TG IS HIGH Lab Routine Pure hypercholesterolemia Expected: 05/17/2024 (Approximate), Expires: 05/17/2025 Health Maintenance Due Date Last Done Comments Adult Wellness Visit 2004 Depression Screening 07/20/2023 07/20/2022 COVID-19 Vaccine ( season) 2024 06/03/2022, 01/10/2022, 06/12/2021, Additional history exists Influenza Vaccine (FLU shot) (#1) 2024 06/03/2022, 04/30/2021, 04/30/2020, Additional history exists Albumin/Creatinine Ratio 04/27/20252 022, 10/16/2021, 09/23/2021 DXA Scan 06/24/2027 06/24/2020, 05/07/2016 DTap/Tdap Vaccines (3 - Td or Tdap) 04/18/2029 04/18/2019, 03/28/2019 Zoster Vaccines Completed 02/07/2019, 04/12/2018, 02/22/2018, Additional history exists Pneumococcal Vaccine: 65+ Years Completed 06/10/2020, 03/17/2019, 06/18/2014 HPV (Gardasil) Vaccine Aged Out No lo nger eligible based on patient's age to complete this topic Hepatitis B Vaccine Aged Out No longe r eligible based on patient's age to complete this topic MENINGOCOCCAL (MENACTRA/MENVEO) Aged Out No longer eligible based on patient's age to complete this topic documented as of this encounter Medical Devices Not on filedocumented as of this encounter Visit Diagnoses Diagnosis Pure hypercholesterolemia documented in this encounter Care Teams 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
--- OUTSIDE RECORDS SUMMARY | 2024-05-20 00:43 | External Medical Summary | Summary of Care ---
Author Name Unknown Organization [facility] Address [address] [place] [address] Phone [phone] Care Team Providers Care Plastic Eye Technician Name Role Phone Rodolfo Figueroa MD Primary Care Provider + Reason for Visit * Reason Comments eRx-Medication Refill Encounter Details Date Type Department Care Team (Late st Contact Info) Description 04/22/2024 Refill General Internal Medicine [facility] [address] [facility] [place] [address] Jaguar Lemus PA-C [address] [place] [address] [place] [address] HTN, goal below 150/90 Allergies Active Allergy Reactions Criticality Noted Date Comments Lisinopril & Diet Manage Prod Cough Medium 2017 documented as of this encounter (statuses as of 04/24/2024) Medications Medication Sig Dispensed Refills Start Date [...] mouth in the morning. Nicotinamide . Active Atorvastatin Calcium 40 MG Oral Tablet (Lipitor)Indications:Pur e hypercholesterolemia Take 1 Tab by mouth daily. 90 Tablet 1 4 Active amLODIPine Besylate 2.5 MG Oral Tablet (Norvasc)Indications:HTN , goal below 150/90 Take 1 Tablet (2.5 mg) by mouth in the morning. 90 Tablet 1 4 Active amLODIPine Besylate 2.5 MG Oral Tablet (Norvasc)Indications:HTN , goal below 150/90 Take 1 Tablet (2.5 mg) by mouth in the morning. 90 Tablet 3 3 024 Discontinued documented as of this encounter (statuses as of 04/24/2024) Active Problems Problem Noted Date Diagnosed Date Right renal mass 03/20/2022 Malignant neoplasm of overlapping sites of bladd er 11/27/2021 Isolated proteinuria 09/25/2021 Malignant neoplasm of upper- outer quadrant of right breast in female, estrogen receptor positive 06/10/2020 History of melanoma excision 03/17/2019 HTN, goal below 150/90 02/04/2018 Pure hypercholesterolemia 02/04/2018 documented as of this encounter (statuses as of 04/24/2024) Resolved Problems Problem Noted Date Diagnosed Date Resolved Date Advanced directives, counseling/discussion 09/29/2019 07/22/2023 Overview: She thinks she has one but has not been able to locate it Cystocele, lateral 02/25/2017 2 CAITLIN (stress urinary incontinence, female) 02/25/2017 11/27/2021 Urge incontinence of urine 02/25/2017 0 11/27/2021 documented as of this encounter (statuses as of 04/24/2024) Immunizations Name Administration Dates Next Due COVID-19 [...] encounter Miscellaneous Notes * Telephone Encounter - Yamil Orellana [facility] - 04/24/2024 2:28 PM EDT Signed Prescriptions: Disp Refills amLODIPine Besylate 2.5 MG Oral Tablet (No*90 Tab*1 Sig: Take 1 Tablet (2.5 mg) by mouth in the morning.Authorizing Provider: RODOLFO FIGUEROA User: YAMIL ORELLANA documented in this encounter Plan of Treatment Upcoming Encounters Date Type Department Care Team (Late st Contact Info) Description 07/26/2024 10:00 AM EST Office Visit General Internal Medicine [facility] [address] [place] [address] Rodolfo Figueroa MD 200 [place] [address] Health Maintenance Due Date Last Done Comments Adult Wellness Visit 2004 Depression Screening 07/20/2023 07/20/2022 COVID-19 Vaccine ( season) 2024 06/03/2022, 01/10/2022, 06/12/2021, Additional history exists Influenza Vaccine (FLU shot) (#1) 2024 06/03/2022, 04/30/2021, 04/30/2020, Additional history exists Albumin/Creatinine Ratio 04/27/2025 022, 10/16/2021, 09/23/2021 DXA Scan 06/24/2027 06/24/2020, 05/07/2016 DTap/Tdap Vaccines (3 - Td or Tdap) 04/18/2029 04/18/2019, 03/28/2019 Zoster Vaccines Completed 02/07/2019, 12/2018, 02/22/2018, Additional history exists Pneumococcal Vaccine: 65+ [...] as of this encounter Visit Diagnoses Diagnosis HTN, goal below 150/90 documented in this encounter Care Teams Plastic Eye Technician Relationship Specialty Start Date End Date Rodolfo Figueroa MD [address] [place] [address] PCP - General Internal Medicine 06/03/21 documented as of this encounter
--- OUTSIDE RECORDS SUMMARY | 2024-05-20 00:43 | External Medical Summary | Summary of Care ---
Author Name Unknown Organization [facility] Address [address] [facility] [place] [address] Phone [phone] Care Team Providers Care Crewman Armoured Personnel Carrier [id number] Name Role Phone Rodolfo Ryan MD Primary Care Provider + Reason for Visit * Reason Onset Date Comments Appointment 02/12/2024 MRI Encounter Details Date Type Department Care Team (Late st Contact Info) Description 02/12/[address] [facility] [place] [address] Cee Monroy, RT (R) Appointment (/MRI) Allergies Active Allergy Reactions Criticality Noted Date Comments Lisinopril & Diet Manage Prod Cough Medium 2017 documented as of this encounter (statuses as of 02/12/2024) Medications Medication Sig Dispensed Refills Start Date End Date Status Inulin (METAMUCIL CLEAR & NATURAL) powder Take by mouth daily. Active Carboxymethylcellulose Sodium 0.25 % Ophthalmic Solution Daily as needed as directed 02/04/2018 Active acetaminophen (TYLENOL) 500 MG Tablet 1-2 daily as needed 100 Tab 02/04/2018 Active Refresh 1.4-0.6 % Ophthalmic Solution (polyvinyl alcohol-povidone PF) 1 Drop as needed. Active Doxylamine Succinate (Sleep) 25 MG Oral Tablet Take 0.5 Tablets by mouth at bedtime as needed. Active Anastrozole 1 MG Oral Tablet (Arimidex) Take 1 Tablet by mouth in the morning. Take 1 pill by mouth daily. 09/10/2021 Active amLODIPine Besylate 2.5 MG Oral Tablet (Norvasc)Indications:HTN, goal below 150/90 Take 1 Tablet (2.5 mg) by mouth in the morning. 90 Tablet 3 04/12/2023 Active Systane 0.4-0.3 % Ophthalmic Solution (Artificial Tears) Instill into both eyes as needed for Dry eyes. Active NATURAL SUPPLEMENT Take 1 Capsule by mouth in the morning. Nicotinamide. Active Atorvastatin Calcium 40 MG Oral Tablet (Lipitor)Indications:Pure hypercholesterolemia Take 1 Tab by mouth daily. 90 Tablet 1 11/09/2023 Active documented as of this encounter (statuses as of 02/12/2024) Active Problems Problem Noted Date Diagnosed Date Right renal mass 03/20/2022 Malignant neoplasm of overlapping sites of bladd er 11/27/2021 Isolated proteinuria 09/25/2021 Malignant neoplasm of upper- outer quadrant of right breast in female, estrogen receptor positive 06/10/2020 History of melanoma excision 03/17/2019 HTN, goal below 150/90 02/04/2018 Pure hypercholesterolemia 02/04/2018 documented as of this encounter (statuses as of 02/12/2024) Resolved Problems Problem Noted Date Diagnosed Date Resolved Date Advanced directives, counseling/discussion 09/29/2019 07/22/2023 Overview: She thinks she has one but has not been able to locate it Cystocele, lateral 02/25/2017 2 CAITLIN (stress urinary incontinence, female) 02/25/2017 11/27/2021 Urge incontinence of urine 02/25/2017 0 11/27/2021 documented as of this encounter (statuses as of 02/12/2024) Immunizations Name Administration Dates Next Due COVID-19 [...] 65+ Yrs, IM (FLUAD) 06/03/2022,04/30/2021,04/30/2020 Seasonal Influenza, PF, 6 M & above, IM , (FluLaval or Fluzone) 05/20/2018 Seasonal Influenza, Trivalen t, Adjuvanted, 65+ yrs 06/30/2019 Seasonal Influenza, Trivalen t, High Dose, No Preserve, IM 08/17/2016 TDAP (age 10 and older)(Boostrix) 04/18/2019, Zoster [...] encounter Miscellaneous Notes * Telephone Encounter - Cee Monroy RT (R) - 02/12/2024 3:50 PM EDT Name: Shanti Valenzuela Do you have any of the following: Pacemaker, stents, heart valves, aneurysm clips? No Have you ever worked with metal or have you ever gotten metal in your eyes? No Have you had a colonoscopy in the last 30 days? No On dialysis? No Do you have any dermals or body piercing's? No Do you wear an insulin pump or diabetic monitor? No Told to come at 815 [address]PO RT Jeffry (R) documented in this encounter Plan of Treatment Upcoming Encounters Date Type Department Care Team (Late st Contact Info) Description 02/15/2024 8:45 AM EDT Imaging Radiology [address] [facility] [place] [address] 07/26/2024 10:00 AM EST Office Visit General Internal Medicine [facility] 200 [facility] [place] [address] Rodolfo Ryan MD [address] [facility] [address] Health Maintenance Due Date Last Done Comments COVID-19 Vaccine ( season) 2023 06/03/2022, 01/10/2022, 06/12/2021, Additional history exists Depression Screening 07/20/2023 07/20/2022 Influenza Vaccine (FLU shot) (Season Ended) 2024 06/03/2022, 04/30/2021, 04/30/2020, Additional history exists Albumin/Creatinine Ratio 04/27/20252 022, 10/16/2021, 09/23/2021 DXA Scan 06/24/2027 06/24/2020, 05/07/2016 DTaP,Tdap,and Td Vaccines (3 - Td or Tdap) 04/18/2029 04/18/2019, 03/28/2019 Zoster Vaccines Completed 02/07/2019, 04/0 12/2018, 02/22/2018, Additional history exists Pneumococcal Vaccine: 65+ Years Completed 06/10/2020, 03/17/2019, 06/18/2014 GARDASIL-HPV IMMUNIZATION SERIES Aged Out No longer eligible based on patient's age to complete this topic Hepatitis B Aged Out No longer eligi ble based on patient's age to complete this topic MENINGOCOCCAL (MENACTRA/MENVEO) Aged Out No longer eligible based on patient's age to complete this topic documented as of this encounter Medical Devices Not on filedocumented as of this encounter Care Teams Crewman Armoured Personnel Carrier [id number] Relationship Specialty Start Date End Date Rodolfo Ryan MD [address] [facility] [place] [address] PCP - General Internal Medicine 06/03/21 documented as of this encounter
--- OUTSIDE RECORDS SUMMARY | 2024-05-20 00:43 | External Medical Summary | Continuity of Care Document ---
Author Name Unknown Organization [facility] [address] [id number] Care Team Providers Care Manager Linux Name Role Phone Connor Rodolfo Kyle Primary Care Physician [phone] [id number] Date(s): 11/29/23 - 11/29/23 [facility] [address] [id number] [place] Encounter Diagnosis History of melanoma(Discharge Diagnosis) - 11/29/23 History of SCC (squamous cell carcinoma) of skin(Discharge Diagnosis) - 11/29/23 Actinic keratosis(Discharge Diagnosis) - 11/29/23 Seborrheic keratoses(Discharge Diagnosis) - 11/29/23 Inflamed seborrheic keratosis(Discharge Diagnosis) - 11/29/23 Sun-damaged skin(Discharge Diagnosis) - 11/29/23 Discharge Disposition: Home or Self Care Attending Physician: MD Naranjo Sara B Referring Physician: MD Naranjo Sara B Allergies, Adverse Reactions, Alerts Substance Reaction Severity Status lisinopril bad cough Active Assessment and Plan Extracted from: Title:Dermatology Office Visit Note Author:Femi calderon MD, Sara B Date:11/29/23 1.History of melanoma Warning signs of skin cancer were reviewed. Sun protection reviewed. Follow-up in3 months, sooner for any changing or growing lesions or acute concerns. I also recommended monthly self skin exams 2.History of SCC (squamous cell carcinoma) of skin see # 1 3.Actinic keratosis x6. Lesions treated with liquid nitrogen. Patient aware of possibility of infection, hypo or hyperpigmentation or scarring and did elect to proceed. They should inform me of any problems or recurrences post treatment. Care sheet given. 4.Seborrheic keratoses And lentigo's. Chronic, within normal limits 5.Inflamed seborrheic keratosis Lesions treated with liquid nitrogen. Patient aware of possibility of infection, hypo or hyperpigmentation or scarring and did elect to proceed. They should inform me of any problems or recurrences post treatment. Care sheet given. 6.Sun-damaged skin Patient is aware of her significant increased risk and to call with any new or changing lesions. Immunizations Given and Recorded Vaccine Date Status Refusal Reason influenza virus vaccine, inactivated 08/17/16 Give n Medications amLODIPine Start: 11/22/18 10:27:00 EDT, 2.5 mg =, PO, Daily Start Date: 11/22/18 Status: Ordered anastrozole 1 mg oral tablet Start: 03/24/21 9:06:00 EDT, 1 tab, PO, Daily Start Date: 03/24/21 Status: Ordered Lipitor 40 mg oral tablet Start: 12/26/15 9:39:00, 1 tab, PO, Daily Start Date: 12/26/15 Status: Ordered Metamucil Start: 01/21/16 10:53:00, 1 tablespoon, PO, Daily Start Date: 01/21/16 Status: Ordered Nicotinamide ZCF oral tablet Start: 11/30/23 10:23:00 EDT, 1 tab, PO, Daily Start Date: 11/30/23 Status: Ordered TheraTears Start: 11/25/16 9:13:00, 1 drop, both eyes, tid Start Date: 11/25/16 Status: Ordered Unisom 25 mg oral tablet Start: 01/21/16 10:55:00, 0.5 tab, PO, qhs, PRN: sleep Start Date: 01/21/16 Status: Ordered Mental Status 11/29/23 Barriers to Learning one year None evide nt Mandatory Health Literacy Documentation Yes Health Literacy Communication Barriers N ever Primary Language Burkinan Problem List Condition Confirmation Course Effective Dates Status Health St atus Informant Actinic keratosis Confirmed Active Basal cell carcinoma of back Confirmed Active 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 Confirmed Active Changing skin lesion Confirmed Active Chronic cough Confirmed Active Fibrous papule of face Confirmed Active History of melanoma Confirmed Active Bladder prolapse, female, acquired Confirmed Active H/O melanoma in situ Confirmed Active History of SCC (squamous cell carcinoma) of skin Confirmed Active Elevated cholesterol Confirmed Active High blood pressure Confirmed Active Hypertrophic scar Confirmed Active Impetigo Confirmed Active Inflamed seborrheic keratosis Confirmed Active Pelvic prolapse Confirmed Active Seborrheic keratoses Confirmed Active Sun-damaged skin Confirmed Active Dheeraj's disease Confirmed Active Diagnosis Diagnosis Type Effective Dates Health Status Clinical Service Informant History of melanoma Discharge Diagnosis 11/29/23 History of SCC (squamous cell carcinoma) of skin Discharge Diagnosis 11/29/23 Actinic keratosis Discharge Diagnosis 11/29/23 Sun-damaged skin Discharge Diagnosis 11/29/23 Seborrheic keratoses Discharge Diagnosis 11/29/23 Inflamed seborrheic keratosis Discharge Diagnosis 11/29/23 Procedures Procedure Date Related Diagnosis Body Site Status Mohs micrographic surgery 11/30/23 Completed Shave biopsy and cauterizati on of skin 1 08/19/23 Completed Electrodesiccation with curettage 04/22/23 Completed Shave biopsy and cauterization of skin 04/01/23 Completed Electrodesiccation with curettage 09/10/22 Completed Shave biopsy and cauterization of skin 07/20/22 Completed Shave biopsy 2 03/11/22 Completed Shave biopsy 3 12/10/21 Completed Cystoscopy 4 12/03/21 Completed Hysterectomy 5 10/29/21 Completed Shave biopsy and cauterization of skin 09/11/21 Completed Curettage and cauterization of skin lesion 03/24/21 Completed Shave biopsy 6 01/09/21 Completed Lumpectomy of right breast 07/2020 Completed Excision 7 01/11/20 Completed Shave biopsy and cauterisation of skin 12/27/19 Completed Electrodesiccation with curettage 8 06/14/19 Completed Electrodesiccation with curettage 11/29/18 Completed Shave biopsy and cauterisati on of skin 9 11/22/18 Completed Shave biopsy and cauterizati on of skin 10 01/03/18 Completed Punch biopsy of skin 08/17/16 Comp leted Shave biopsy of skin 08/17/16 Comp leted Shave biopsy and cauterizati on of skin 11 05/04/16 Completed Punch biopsy of skin 04/27/16 Comp leted Shave biopsy of skin 04/27/16 Comp leted Electrodesiccation with curettage 12 01/21/16 Completed Excision of basal cell carcinoma 13 01/21/16 Completed Punch biopsy of skin 12/26/15 Comp leted Shave biopsy and cauterizati on of skin 14 12/26/15 Completed Mohs surgery 2016 Completed Mohs surgery 2014 Completed Mohs surgery 15 1994 Completed Cataract 16 Completed Laser 17 Completed Melanoma 18 Completed Surgery 19 Completed 11. Right upper cutaneous lip, 2. Left neck, with curettage, 3. Left dorsal hand, with curettage, & 4. Left ankle/foot 2left forehead 3right upper arm superior right mid upper arm 4Dr. Shawn Vucavincent performed at [facility] 5Hysterectomy with repair of pelvic prolapse performed by Dr. Heidi Noble at [facility] 6left upper back 7SCC on central chest 8left trapezius 9Central back 10right upper arm 11right arm 12x 2 13x 2 14Shave x4 15mohs melanoma left back 2009 melan 16L/R 17to face and nose [id number] 2015 19before age 10 Social History Social History Type Response Smoking Status Never smoked cigaret bren Sex Female Dermatology Outpatient Note * MD Jose A, Palma Staples: PERFORM Event Display: Dermatology Outpt Note Authored Date: Chief Complaint annual skin exam, HX of MMIS, SCC, BCC, would like lesion on right upper eyelid removed History of Present Illness Patient is an 83-year-old female, history of multiple melanomas, basal cell and squamous cell, presents for skin exam today Is a spot of concern on the left dorsal hand. Dermatology History: History of 3+ separate and unique primary melanomas. 1) Breslow 0.88 mm, back, Negative sentinel lymph node (2), status post wide local excision. 2008. Stage IA. 2 ) Melanoma in situ - left neck, status post wide local excision. 2015. Stage 0. 3 ) Melanoma in situ - right foot, status post wide local excision. 2001. Stage 0. 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 Jamison History of multiple basal cell carcinomas, most recent left upper back tx ED&C fall 2018 and central upper back tx spring 2018, left upper back treated summer 2020. Had a basal cell on the left distal guy treated with electrodesiccation and curettage in August2022 Mohs for Basal cell carcinomas: Left nose - 1994, repeat in 2015. Right shoulder - 2014 History of one superficial squamous cell carcinoma from the chest. Patient had a basal cell on the right upper thigh treated with electrodesiccation and curettage in 2022 She had been seeing [facility] intermittently but prefers to stay local now. [1] [1] Patient had a basal cell on the left neck and on the left ankle foot biopsied in August 2023. She is scheduled for Mohs tomorrow for the left ankle. The small basal cell on her left neck that was 3 mm was treated with electrodesiccation and curettage. ROS: 12 point review of systems conducted. Negative for CHESTER/ uncontrolled nausea or vomiting/ dizziness/ vision changes/ speech or swallowing problems/ new cough/ SOB/ diarrhea/ abdominal pain/ new or concerning moles/ unintended weight loss/ night sweats/ fevers/ chills/ malaise/ swollen lymphnodes. Patient is able to perform the activities of daily living without difficulty. Physical Exam Gen: Well appearing patient, no acute distress. Alert and oriented x3. Good mood. Skin examination completed of face, eyelids, scalp, hair, lips, ears, neck, chest, back, abdomen,upper and lower extremities bilaterally including hands, feet, fingers and toes, fingernails and toenails, pt declined buttocks and groin. Pt declined a senior supply chain analyst.Patient has a few actinic keratoses today including 3 on the left cheek 1 on the right cheek 2 on the left posterior upper arm and 1on the right dorsal hand. She has numerous seborrheic keratoses. She points out some irritated seborrheic keratoses on the right upper lateral eyelid as well as the left thigh times to the right lower leg x 1 and of the left clavicle. No evidence recurrent skin cancer. No neck, supraclavicular, posterior occipital, axillary or inguinal lymphadenopathy. No hepatosplenomegaly.Numerous lentigo's and seborrheic keratoses. Assessment/Plan 1.History of melanoma Warning signs of skin cancer were reviewed. Sun protection reviewed. Follow-up in3 months, sooner for any changing or growing lesions or acute concerns. I also recommended monthly self skin exams 2.History of SCC (squamous cell carcinoma) of skin see # 1 3.Actinic keratosis x6. Lesions treated with liquid nitrogen. Patient aware of possibility of infection, hypo or hyperpigmentation or scarring and did elect to proceed. They should inform me of any problems orrecurrences post treatment. Care sheet given. 4.Seborrheic keratoses And lentigo's. Chronic, within normal limits 5.Inflamed seborrheic keratosis Lesions treated with liquid nitrogen. Patient aware of possibility of infection, hypo or hyperpigmentation or scarring and did elect to proceed. They should inform me of any problems or recurrences post treatment. Care sheet given. 6.Sun-damaged skin Patient is aware of her significant increased risk and to call with any new or changing lesions. Problem List/Past Medical History Ongoing Actinic keratosis Basal cell carcinoma of back Bladder prolapse, female, acquired Changing skin lesion Chronic cough Elevated cholesterol Fibrous papule of face Dheeraj's disease H/O melanoma in situ High blood pressure History of melanoma History of SCC (squamous cell carcinoma) of skin Hypertrophic scar Impetigo Inflamed seborrheic keratosis Pelvic prolapse Seborrheic keratoses Sun-damaged skin Historical Basal cell carcinoma Basal cell carcinoma of left upper arm Benign neoplasm, unspecified site Neoplasm of uncertain behavior of skin Skin lesion of cheek Procedure/Surgical History Shave biopsy and cauterization of skin| Service Date: 08/19/2023Electrodesiccation with curettage| Service Date: 04/22/2023Shave biopsy and cauterization of skin| Service Date: 04/01/2023Electrodesiccation with curettage| Service Date: 09/10/2022Shave biopsy and cauterization of skin| Service Date: 07/20/2022have biopsy| Service Date: 03/11/2022have biopsy| Service Date: 12/10/2021ystoscopy| Service Date: 12/03/2021Hysterectomy| Service Date: 10/29/2021have biopsy and cauterization of skin| Service Date: 09/11/2021urettage and cauterization of skin lesion| Service Date: 03/24/2021have biopsy| Service Date: 01/09/2021umpectomy of right breast| Service Date: 07/2020Excision| Service Date: 01/11/2020Shave biopsy and cauterisation of skin| Service Date: 12/27/2019Electrodesiccation with curettage| Service Date: 06/14/2019Electrodesiccation with curettage| Service Date: 11/29/2018Shave biopsy and cauterisation of skin| Service Date: 11/22/2018Shave biopsy and cauterization of skin| Service Date: 01/03/2018Shave biopsy of skin| Service Date: 08/17/2016Punch biopsy of skin| Service Date: 08/17/2016Shave biopsy and cauterization of skin| Service Date: 05/04/2016Punch biopsy of skin| Service Date: 04/27/2016Shave biopsy of skin| Service Date: 04/27/2016Electrodesiccation with curettage| Service Date: 01/20Excision of basal cell carcinoma| Service Date: 01/21/2016Punch biopsy of skin| Service Date: 12/26/2015Shave biopsy and cauterization of skin| Service Date: 12/26/2015[facility] surgery| Service Date: 2015[facility] surgery| Service Date: 2014[facility] surgery| Service Date: rgeryMelanomaCataract Medications amLODIPine, 2.5 mg, PO, Daily anastrozole(anastrozole 1 mg oral tablet), 1 mg= 1 tab, PO, Daily atorvastatin(Lipitor 40 mg oral tablet), 40 mg= 1 tab, PO, Daily doxylamine(Unisom 25 mg oral tablet), 12.5 mg= 0.5 tab, PO, qhs, PRN ocular lubricant(TheraTears), 1 drop, both eyes, tid psyllium(Metamucil), 1 tablespoon, PO, Daily Allergies lisinoprilbad cough Social History Smoking Status Never smoked cigarettes [1]Office Visit Note; MD Jose A, Palma Staples 07/27/2023 11:55 EST Electronic Signature on File Electronically Reviewed/Signed by: Palma Naranjo MD Author Signature Dt/Tm:11/29/2023 11:34 AM Department of Dermatology [facility] Patient Care team information Care Team Personnel Name: MD Ryan Timothy F Position: Referring DIRECT Member Role: Primary Care Provider Address: Address: [address] [place] [id number] Care Team Related Persons Name: ASTRID BOND Address: [place] Address: home [address] [place], [place] [id number] Name: ASTRID BOND Address: [address] [facility] [id number]"
--- OUTSIDE RECORDS SUMMARY | 2024-05-20 00:43 | External Medical Summary | Continuity of Care Document ---
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(Discharge Diagnosis) - 11/30/23 Discharge Disposition: Home or Self Care Attending Physician: MD Solares Cassandra Referring Physician: MD Naranjo Sara B Allergies, Adverse Reactions, Alerts Substance Reaction Severity Status lisinopril bad cough Active Immunizations Given and Recorded Vaccine Date Status [...] Start Date: 01/21/16 Status: Ordered Mental Status 11/30/23 Barriers to Learning one year None evide nt Mandatory Health Literacy Documentation Yes Health Literacy Communication Barriers N ever Primary Language Italian Problem List Condition Confirmation Course Effective Dates [...] keratoses Confirmed Active Sun-damaged skin Confirmed Active Monroe's disease Confirmed Active Diagnosis Diagnosis Type Effective Dates Health Status Cl inical Service Informant 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 Shawn Rivers performed at [facility] 5Hysterectomy with repair of pelvic prolapse performed by Dr. Heidi Noble at [place] 6left upper back 7SCC on central chest 8left trapezius 9Central back 10right upper arm 11right arm 12x 2 13x 2 14Shave x4 15mohs melanoma left back 2009 melan 16L/R 17to face and nose [id number] 2016 19before age 10 Social History Social History Type Response Smoking Status Never smoked cigaret bren Sex Female Dermatology Outpt Proc * MD Jose A, Palma Staples: REVIEW MD Naranjo Sara B: REVIEW MD Solares Cassandra: MODIFY, SIGN MD Solares Cassandra: SIGN, VERIFY MD Solares Cassandra: VERIFY, SIGN Event Display: Dermatology Outpt Proc Authored Date: Patient: QUENTIN BOND Age: 83 years Sex: Female : 1940 Associated Diagnoses: None Author: MD Winslow Alexander Visit Information Nurse/MA: Visit Information Mohs number: [id number] Mohs location of surgery: [facility] Pathology accession number: [id number] Mohs Med Admin: MIGUELANGEL Tapia Hannah [facility] Surgeon: MD Beck, Yany [facility] Med Admin Surgeon: MD Goldy, Shawn [facility] Referring Physician: MD Naranjo Sara B [facility] Family Physician: MD Ryan Timothy F . Referral information: Referring Physician: MD Naranjo Sara B. Family physician information: Primary Care Physician: MD Ryan Timothy F . Location: [place]. Health Status Allergies: Allergic Reactions (Selected) Severity Not Documented Lisinopril- Bad cough.. Current medication: (Selected) Documented Medications Documented Lipitor 40 mg oral tablet: 1 tab, PO, Daily Metamucil: 1 tablespoon, PO, Daily Nicotinamide ZCF oral tablet: 1 tab, PO, Daily TheraTears: 1 drop, both eyes, tid Unisom 25 mg oral tablet: 0.5 tab, PO, qhs, PRN: sleep amLODIPine: 2.5 mg, PO, Daily anastrozole 1 mg oral tablet: 1 tab, PO, Daily. 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 H/O melanoma in situ / SNOMED CT 2376886602 / Confirmed High blood pressure / SNOMED CT 8019299995 / Confirmed History of melanoma / SNOMED CT 047855318 / Confirmed History of SCC (squamous cell carcinoma) of skin / SNOMED CT 7070339985 / Confirmed Hypertrophic scar / SNOMED CT 085002671 / Confirmed Impetigo / SNOMED CT 23823613 / Confirmed Inflamed seborrheic keratosis / SNOMED CT 1764630613 / Confirmed Pelvic prolapse / SNOMED CT 928506903 / Confirmed Seborrheic keratoses / SNOMED CT 6675169036 / Confirmed Sun-damaged skin / SNOMED CT 74592874 / Confirmed All Problems Actinic keratosis / SNOMED CT 2049465635 / Confirmed Basal cell carcinoma of back / SNOMED CT 6864672137 / Confirmed 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 / SNOMED CT 1979269678 / Confirmed Bladder prolapse, female, acquired / SNOMED CT 1329133324 / Confirmed Changing skin lesion / SNOMED CT 5735760453 / Confirmed Chronic cough / SNOMED CT 024207816 / Confirmed Elevated cholesterol / SNOMED CT 72980613 / Confirmed Fibrous papule of face / SNOMED CT 009854562 / Confirmed Monroe's disease / SNOMED CT 81208644 / Confirmed H/O melanoma in situ / SNOMED CT 5734577530 / Confirmed High blood pressure / SNOMED CT 2744686151 / Confirmed History of melanoma / SNOMED CT 229588083 / Confirmed History of SCC (squamous cell carcinoma) of skin / SNOMED CT 6487441630 / Confirmed Hypertrophic scar / SNOMED CT 576746266 / Confirmed Impetigo / SNOMED CT 60758529 / Confirmed Inflamed seborrheic keratosis / SNOMED CT 5313437214 / Confirmed Pelvic prolapse / SNOMED CT 711902918 / Confirmed Seborrheic keratoses / SNOMED CT 5021122445 / Confirmed Sun-damaged skin / SNOMED CT 60224257 / Confirmed. Mohs Surgical Information Operation: Surgical excision of cutaneous malignancy using continuous microscopic control (Mohs Micrographic Surgery). 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 Nurse/MA: Surgical Information Mohs Surgical Diagnosis: Superficial Mohs Surgical Location: Left, Other: Ankle Mohs Previous Treatment: Electrodessication and curettage Mohs Anesthetic: 0.5% lidocaine with epinephrine and bicarbonate Mohs Preop Size of Tumor Length: 0.8 cm Mohs Preop Size of Tumor Width: 0.8 cm Mohs Stage 1 Specimen: 1 Mohs Final defect size Length: 1.3 cm Mohs Final defect size Width: 1.1 cm Mohs Size of repair: second intent . Indications for Mohs surgery: Recurrence, Ill-defined margins. Appropriate Use Criteria (AUC): 7 . Anesthetic: 0.5% lidocaine with epinephrine and bicarbonate. Clinical description: 8mm ill-defined erythematous sclerotic appearing papule on L ankle. Procedure: Informed consent was obtained which included explanation of the Mohs surgery procedure, reasons why Mohs surgery was preferable to alternatives such as standard excision, and wound management, associated risks, scarring, and potential need for further surgery. The patient verbalized understanding and all questions were answered. The biopsy site/lesion was outlined, and the location was re-confirmed by the patient using a hand held mirror. The operative site was then prepped with antiseptic solution, draped, and anesthetized with a infiltration of local anesthetic. Following this, the clinically apparent portion of the tumor was surgically removed. A thin layer of tissue was then surgically excised around the tumor. Hemostasis was obtained with electrocautery, or aluminum chloride, and a pressure dressing was placed on the wound. Bipolar forceps were used in patients with an implanted electrical device. A reference map was drawn and the excised tissue was cut into an appropriate number of sections for examination in the Mohs micrographic laboratory. Edges of each tissue section were dyed with tissue marking ink inorder to achieve precise orientation. These tissue sections were then processed and stained to produce slides for evaluation of the entire peripheral and deep margins of the excised tissue. The prepared microscopic sections were then examined by the Mohs surgeon. Procedural Time Out: Patient identified with name and date of , Procedure verified, Correct site, if applicable. Stages: Stage 1 included multiple microscopic sections of 1 tissue specimens, At this point, no further tumor cells were identified. Tumor eradication was complete after a total of 1 stage(s) of surgery. Wound management: A discussion was held with the patient about reconstruction options and wound healing, addressing functional and cosmetic concerns along with benefits and potential risks of each approach., After full discussion of the options, it was decided to allow this wound to heal by second intention. The wound was cleansed and a pressure dressing was applied and the patient was instructedin postoperative care. Procedure Tolerated: Well, Without complications, Estimated blood loss 10 ml. Postoperative medications: (Selected) Documented Medications Documented Lipitor 40 mg oral tablet: 1 tab, PO, Daily Metamucil: 1 tablespoon, PO, Daily Nicotinamide ZCF oral tablet: 1 tab, PO, Daily TheraTears: 1 drop, both eyes, tid Unisom 25 mg oral tablet: 0.5 tab, PO, qhs, PRN: sleep amLODIPine: 2.5 mg, PO, Daily anastrozole 1 mg oral tablet: 1 tab, PO, Daily. Postoperative follow up: Regular skin check with the referring pediatric dermatologist, 3- 4 week follow up for wound check. Photo: . 2023-11-30 10:39:50 2023-11-30 11:45:52 I, Yany Solares MD, personally examined the patient, performed the excision of all Mohs layers. Dr. Winslow acted as my medical surgical tech and scribe, I agree with the above documentation Electronic Signature on File CC: Palma Naranjo MD [address] [facility] 2 [facility] [address] CC: Rodolfo Ryan MD [address] [facility] [id number] * Electronically Reviewed/Signed by: Shawn Winslow MD Author Signature Dt/Tm:11/30/2023 04:27 PM Resident Department of Dermatology Electronically Reviewed/Signed by: MD Natalie Niñoigner Signature Dt/Tm: 11/30/2023 11:22 PM Department of Dermatology AV * MIGUELANGEL Tapia Hannah: PERFORM Event Display: Dermatology Outpt Proc Authored Date: [id number] DERMATOLOGY OUTPATIENT PROCEDURE NOTE Name: QUENTIN BOND Patient Number: [id number] : 1940 Date of Service: 11/30/2023 _ Electronic Signature on File Electronically Reviewed/Signed by: Phylicia Tapia Author Signature Dt/Tm:11/30/2023 01:44 PM Electronically Reviewed/Signed by: MD July Niñoer Signature Dt/Tm: 11/30/2023 01:52 PM Department of Dermatology Patient Care team information Care Team Personnel Name: MD Ryan Timothy F Position: Referring DIRECT Member Role: Primary Care Provider Address: Address: [address] [place] [address] [place] Care Team Related Persons Name: ASTRID BOND Address: [place] Address: home [address] [place], [place] [id number] Name: ASTRID BOND Address: home [address] [place], [place] [id number]
--- OUTSIDE RECORDS SUMMARY | 2024-05-20 00:43 | External Medical Summary | Summary of Care ---
Author Name Unknown Organization [facility] Address [address] [facility] [place] [address] Phone [phone] Care Team Providers Care Trial Attorney Name Role Phone Rodolfo Ryan MD Primary Care Provider + Reason for Referral * (Within 10 days (routine)) - Authorized Specialty Diagnoses / Procedures Referred By Contac t Referred To Contact Radiology Diagnoses Right renal mass Renal cell carcinoma of right kidney (HCC) Procedures US RENAL Shawn Vizcarra MD [address] [place] [phone] Referral ID Status Reason Start Date Expiration Date V isits Requested Visits Authorized [id number] Authorized 05/22/2024 999 999 Encounter Details Date Type Department Care Team (Late st Contact Info) Description 05/15/2024 Orders Only General Internal Medicine [facility] [id number] Shawn Vizcarra MD [address] [place] [phone] Right renal mass*; Renal cell carcinoma of right kidney (HCC) Allergies Active Allergy Reactions Criticality Noted Date Comments Lisinopril & Diet Manage Prod Cough Medium 2017 documented as of this encounter (statuses as of 05/15/2024) Medications Medication Sig Dispensed Refills Start Date [...] 1 pill by mouth daily. 09/10/2021 Active Systane 0.4-0.3 % Ophthalmic Solution (Artificial Tears) Instill into both eyes as needed for Dry eyes. Active NATURAL SUPPLEMENT Take 1 Capsule by mouth in the morning. Nicotinamide. Active Atorvastatin Calcium 40 MG Oral Tablet (Lipitor)Indications:Pure hypercholesterolemia Take 1 Tab by mouth daily. 90 Tablet 1 11/09/2023 Active amLODIPine Besylate 2.5 MG Oral Tablet (Norvasc)Indications:HTN, goal below 150/90 Take 1 Tablet (2.5 mg) by mouth in the morning. 90 Tablet 1 04/24/2024 Active documented as of this encounter (statuses as of 05/15/2024) Active Problems Problem Noted Date Diagnosed Date Right renal mass 03/20/2022 Malignant neoplasm of overlapping sites of bladd er 11/27/2021 Isolated proteinuria 09/25/2021 Malignant neoplasm of upper- outer quadrant of right breast in female, estrogen receptor positive 06/10/2020 History of melanoma excision 03/17/2019 HTN, goal below 150/90 02/04/2018 Pure hypercholesterolemia 02/04/2018 documented as of this encounter (statuses as of 05/15/2024) Resolved Problems Problem Noted Date Diagnosed Date Resolved Date Advanced directives, counseling/discussion 09/29/2019 07/22/2023 Overview: She thinks she has one but has not been able to locate it Cystocele, lateral 02/25/2017 CAITLIN (stress urinary incontinence, female) 02/25/2017 11/27/2021 Urge incontinence of urine 02/25/2017 0 11/27/2021 documented as of this encounter (statuses as of 05/15/2024) Immunizations Name Administration Dates Next Due COVID-19 [...] on file documented as of this encounter Plan of Treatment Upcoming Encounters Date Type Department Care Team (Late st Contact Info) Description 07/26/2024 10:00 AM EST Office Visit General Internal Medicine Jaki Weinstein [place] [address] [facility] [place] [address] Rodolfo Ryan MD [address] [facility] [place] [address] Scheduled Orders Name Type Priority Associated Diagnoses Orde r Schedule US RENAL Medical Imaging Routine Right renal mass Renal cell carcinoma of right kidney (HCC) Expected: 05/22/2024, Expires: 06/14/2025 Health Maintenance Due Date Last Done Comments Adult Wellness Visit 2004 Depression Screening 07/20/2023 07/20/2022 COVID-19 Vaccine ( season) 2024 06/03/2022, 01/10/2022, 06/12/2021, Additional history exists Influenza Vaccine (FLU shot) (#1) 2024 06/03/2022, 04/30/2021, 04/30/2020, Additional history exists Albumin/Creatinine Ratio 04/27/202504/27/2 022, 10/16/2021, 09/23/2021 DXA Scan 06/24/2027 06/24/2020, [...] as of this encounter Visit Diagnoses Diagnosis Right renal mass- Primary Unspecified disorder of kidney and ureter Renal cell carcinoma of right kidney (HCC) documented in this encounter Care Teams Trial Attorney Relationship Specialty Start Date End Date Rodolfo Ryan MD [address] [place] [address] PCP - General Internal Medicine 06/03/21 documented as of this encounter
[2024-05-20] MEDS: ACETAMINOPHEN 325 MG TAB PO PRN (05:02)
[2024-05-20 06:27] LABS: Hemoglobin 11.5 g/dl (12.0-16.0); Mean Corpuscular Hemoglobin 31.7 pg (25.0-34.0); Mean Corpuscular Hgb Conc 33.8 g/dL (32.0-36.0); Mean Corpuscular Volume 93.7 fL (80.0-100.0); Mean Platelet Volume 10.3 fL (9.4-12.4); Platelet Count 174 K/uL (130-400); RDW Coefficient of Variation 11.7 % (11.5-14.5); RDW Standard Deviation 40.8 fL (36.4-46.3); Red Blood Count 3.63 M/uL (4.20-5.40); White Blood Count 7.92 K/ul (4.8-10.8)
[2024-05-20 06:51] LABS: Albumin Globulin Ratio 1.3 (0.9-2); Albumin Level 3.5 gm/dl (3.4-5.0); Bilirubin,Total 0.7 mg/dl (0.2-1.0); Calcium 8.9 mg/dl (8.6-10.3); Creatinine Clr Calc Pharmacy 55.2 ml/min; Globulin 2.7 gm/dl (2.5-4.0); Potassium 3.9 mmol/L (3.5-5.1); Total Protein 6.2 gm/dl (6.0-8.3)
--- NOTE | 2024-05-20 07:39 | Hospitalist Progress Note ---
Date of Service May 20, 2024 Assessment & Plan (1) History of melanoma: (2) Breast cancer: (3) Hyperlipidemia: (4) HTN (hypertension): (5) Pyelonephritis: Plan Patient is an 84-year-old female with past medical history significant for bladder cancer s/p resection, right renal mass, Hx of breast cancer, Hx of melanoma, hypertension, hyperlipidemia presenting with generalized malaise and fevers at home after recent cystoscopy. Pyelonephritis Complicated UTI Patient follows with [facility] in [place] for history of bladder cancer and right renal mass S/p cystoscopy with bladder biopsy x 9 days ago in [place] [facility] suggestive of infection, urine Cx growing gram neg bacilli CT abd/pelvis- concerning for R sided pyelonephritis Blood Cx x2 sets pending Lactate and procalcitonin normal Pt not currently septic Continue IV Cefepime Urology consulted for acute infection in setting of pt's history noted above, appreciate recs Hypertension Continue amlodipine Hyperlipidemia Continue statin Hx breast CA: Hold anastrozole for now until infection clears Diet: HH DVT prophylaxis: Lovenox SQ Dispo: med/surg with tele, pt/ot ordered for further recs Admission and Anticipated Discharge Date Admission Date: May 19, 2024 Subjective AAOx3 but having word difficulty finding. Notes she has been feeling tired since cystoscopy. denied fevers, chills or night sweats. States still having abdominal/flank pain. Review of Systems Review of Systems: All systems reviewed & are unremarkable except as noted in Subjective Physical Exam Physical Exam: General: Alert, oriented. No acute distress Psych: Appropriate mood and affect HEENT: NC/AT CV: RRR Resp: Breath sounds clear bilaterally, no increased effort of breathing. Abdomen: Soft, tender in LLQ and RLQ Extremities: No edema in lower extremities bilaterally. Results & Data Results & Data Vital Signs (Past 12 Hours) Vital Signs Temp Pulse Pulse Resp BP BP Pulse Ox 05/20/24 04:51 37.8 C H 99 H 16 148/78 H 92 05/19/24 23:48 37.1 C 95 H 16 150/85 H 94 05/19/24 21:01 84 05/19/24 21:01 36.8 C 77 18 150/72 H 97 05/19/24 21:01 36.8 C 77 18 150/72 H 97 10/04/24 20:00 37.2 C 85 18 151/84 H 94 O2 Del Method 05/20/24 04:51 Room Air 05/19/24 23:48 Room Air 05/19/24 21:01 05/19/24 21:01 Room Air 05/19/24 21:01 Room Air 05/19/24 20:00 Room Air Diagnostic Findings Chest X-Ray 05/19/24 14:21 XR chest 1V not portable CLINICAL HISTORY: Sepsis. COMPARISON STUDY: Chest radiograph August 07, 2019. FINDINGS: Lung volumes are normal. There is no pneumothorax or pleural effusion. There is no consolidation to suggest pneumonia. Several calcified nodules are benign. These are unchanged. There are right breast the left maxillary surgical clips. Cardiomegaly is unchanged. No evidence for pulmonary edema. IMPRESSION: No acute cardiopulmonary findings. ACT 112: Negative or not required by law. Electronically signed by: Gee Escobar M.D. 05/19/2024 3:58 PM Abdomen/Pelvis CT 05/19/24 15:23 CT SCAN OF THE ABDOMEN AND PELVIS WITHOUT IV CONTRAST CLINICAL HISTORY: Flank pain. Fever. COMPARISON STUDY: No priors. TECHNIQUE: CT scan of the abdomen and pelvis is performed from the lung bases to the proximal femora. Images are reviewed in the axial, sagittal, and coronal planes. IV contrast was not administered for this examination. A dose lowering technique was utilized adhering to the principles of ALARA. CT DOSE: 751.06 mGy.cm FINDINGS: Lung bases: The heart is top normal in size and without pericardial effusion. There is bibasilar scarring/atelectasis. No airspace consolidation or pleural effusion is seen. A small hiatal hernia is noted. Liver: The unenhanced liver is normal in size, contour, and attenuation. There is no intrahepatic biliary ductal dilatation. Gallbladder: Unremarkable. Spleen: Normal in size and attenuation. Pancreas: The unenhanced pancreas is mildly atrophic and grossly unremarkable. Adrenal glands: Unremarkable. Kidneys: The unenhanced kidneys are normal in size and without hydronephrosis. No renal calculi are identified and there is no ureteral stone. There is urothelial thickening within the right renal pelvis and ureter with right-sided perinephric stranding and fluid. A 10 mm cyst is noted on the left. Abdominal vasculature: The abdominal aorta is normal in course and caliber noting advanced atherosclerotic calcification. Bowel: There is moderate to advanced colonic diverticulosis without CT evidence of acute diverticulitis. No bowel obstruction is seen. Mild/moderate fecal retention is seen throughout the colon. The appendix is not visualized. Peritoneum: There is no intraperitoneal free air or abdominal ascites. There is a small fat-containing umbilical hernia. Lymphadenopathy: None. Pelvic viscera: The bladder wall is thickened and there is pericystic duration. The uterus is surgically absent. No adnexal lesion is seen. Skeletal structures: The skeletal structures are osteopenic. There is advanced lumbosacral spondylosis and mild scoliosis. Sclerotic change is noted in the sacroiliac joints. Arthritic change is noted in the hips. No lytic or blastic lesions are seen. IMPRESSION: 1. Findings suggest cystitis with ascending urinary tract infection/pyelonephritis on the right. Correlate with clinical findings and urinalysis. 2. No renal calculi are identified. 3. Colonic diverticulosis without CT evidence of acute diverticulitis. 4. Additional findings as above. ACT 112: Negative or not required by law. Electronically signed by: Hebert Jean M.D. 05/19/2024 4:50 PM
[2024-05-20] MEDS: amLODIPine BESYLATE 5 MG TAB PO SCH (09:27)
--- NOTE | 2024-05-20 12:17 | Urology Consultation ---
Date of Consultation May 20, 2024 Assessment & Plan (1) Bladder cancer: (2) Acute pyelonephritis: (3) Fever: (4) Pyelonephritis: (5) Overactive bladder: (6) Breast cancer: (7) History of basal cell carcinoma: (8) History of melanoma: Plan New patient with consultation for acute pyelo status post cystoscopy at outlying facility. Patient has history of bladder cancer and had been undergoing surveillance. Found to have lesions and per records and information from family and medical records patient had undergone cystoscopy and biopsy. Developed worsening fevers ill feelings pelvic discomfort blood in the urine and bother. Patient had presented to the ER for evaluation. Patient independently assessed, examined, interviewed, and evaluated. Patient's vitals and labs were all reviewed. Hemoglobin 11.5. White count 7.92 down from 10. Creatinine 0.69. Pertinent values in the HPI and plan section. Blood pressure 161/83 other vitals are stable. Oxygen saturation 95% on room air. Vitals include temperature of 36.9. Tmax on admission and assessment was 37.8. Imaging was reviewed interpreted by myself. Patient had undergone CT examination. Findings consistent with likely cystitis and inflammation around the bladder. Possible ascending infection on the right with development of possible pyelitis. Agree with read. Vitals were reviewed. Discussed findings extensively with patient and family. Reviewed extensively records from outlying facilities as well as current notes from the consulting physicians/team. Patient's complicated medical and surgical history was reviewed and summarized above. Patient's surgical, medical, social, and family history were all reviewed with pertinent values as above. Discussed patient's current diagnosis as well as concerns and issues. Reviewed different options moving forward. Discussed potential risks and benefits as well as possible options and concerns. Reviewed potential surgical options and interventions. Discussed potential issues and concerns related to intervention. Risk and benefits were discussed extensively with patient and any available family. Discussed potential risks related to anesthesia. Discussed risks of bleeding infection and injury. Discussed extensively options moving forward. Agree with plans for supportive care IV hydration and broad-spectrum antibiotics. Discussed infections after instrumentation with cystoscopy and biopsy. Discussed possible developing infec tion and pyelonephritis. Discussed concerns and issues. Discussed continued monitoring and coverage. Reviewed extensively options moving forward. If patient does developing worsening issues or if signs of obstruction especially with the developing right pyelo could consider possible stent placement versus continued observation. Reviewed patient's previous history specifically related to her bladder cancer and overactive bladder issues. Discussed different options moving forward. Reviewed extensively options moving forward. Discussed continued observation and monitoring. Will continue to monitor and observe patient over time if patient develops significant increase in symptoms development of severe fever or signs of sepsis could consider further intervention. Patient's complicated medical and surgical history was reviewed and surmise above all imaging was reviewed interpreted by myself and all labs were reviewed with vitals and labs and the plan or HPI section. Patient has been considering setting up urologic care in [place] as she now lives in the area and travel to [place] has become more difficult. Was on yearly cystoscopy with last bladder lesion in 2020. Did have biopsy at last visit and will need to assess findings on pathology. Can Plan followup in office in next few weeks after clearing of infection. Likely 48-72 hours of IV antibiotics and await full culture results to de- esculate. History of Present Illness Attending Physician: Sole Ramirez MD History of Present Illness New consultation for patient with UTI/Pyelo, discomfort, and ill feelings. Patient has history of bladder cancer and follows with a urologist in [facility] had undergone cystoscopy with bladder biopsy and developed worsening ill feelings after the procedure. Patient developed sudden onset of pain into the pelvis going down and radiating into groin and back in waves comes and goes. Can be severe at times. Concern for developing fever and infection. Patient had come to the ER for evaluation. Discussed and reviewed patient's family history for any history of issues, infections, and disease. Also, discussed patient's medical/surgery history especially related to any history of urinary issues or stone disease. Patient does have history of bladder cancer. Had been on surveillance and had been found to have lesions which warranted the biopsy. Patient was admitted and is undergoing observation with broad spectrum IV antibiotics. Allergies Allergy/AdvReac Type Severity Reaction Status Date / Time adhesive tape Allergy Redness of Unverified 10/03/22 16:31 Skin Home Medications Medication Instructions Recorded Confirmed Type amlodipine 2.5 mg tablet 2.5 mg PO QAM 11/06/20 05/19/24 History anastrozole 1 mg tablet 1 mg PO HS 11/06/20 05/19/24 History jjmacwp-lcqfqxdsnreah-qzvilpfy 250 1 tab PO UD PRN Headache 11/06/20 05/19/24 History mg-250 mg-65 mg tablet (Migraine Formula) atorvastatin 40 mg tablet 40 mg PO HS 11/06/20 05/19/24 History biotin 1,000 mcg chewable tablet 1,000 mcg PO DAILY 11/06/20 05/19/24 History calcium carbonate (Tums) 200 mg PO UD PRN Heartburn 11/06/20 05/19/24 History diphenhydramine HCl 50 mg capsule 25 mg PO UD PRN Sleep 11/06/20 05/19/24 History (Unisom SleepGels) ibuprofen 200 mg capsule 200 mg PO UD PRN Pain 11/06/20 05/19/24 History psyllium husk 3.4 gram/5.4 gram 2 tsp PO QAM 11/06/20 05/19/24 History oral powder (Metamucil) solifenacin 5 mg tablet 5 mg PO QAM 11/06/20 05/19/24 History Lactobacil.acidophilus-Bifido.animalis 1 cap PO DAILY 10/03/22 05/19/24 History 5 billion cell sprinkle capsule (Probiotic) acetaminophen 500 mg tablet 500 - 1,000 mg PO BID PRN Pain 10/03/22 05/19/24 History Patient History Medical History History of melanoma MULTIPLE History of Mohs micrographic surgery for skin cancer MULTIPLE History of basal cell carcinoma MULTIPLE Breast cancer DX MAY 2020 , HX RADIATION 3 DAYS Overactive bladder Hyperlipidemia HTN (hypertension) Surgical History History of cataract surgery RT History of colonoscopy History of tonsillectomy History of appendectomy History of lumpectomy of right breast JUL 19 2020 Family History Other Family history of diabetes mellitus in father Social History Smoking Status: Never smoker Second Hand Exposure: No; Do You Dip or Chew Tobacco: No; Tobacco Cessation Education Requested by Patient: No Hx Alcohol Use: Yes Alcohol type: wine Hx Substance Use: No Preferred Language: Azerbaijani Communication Ability: Effective Natural Resource Economist Required: No Beliefs That Will Affect Care: None Current Living Situation: Spouse Other Information That Helps Us Care for You: No Feels Safe at Home: Yes Safety Concerns: Feels Safe At This Time Assistive Devices: None Review of Systems Review of Systems: All systems reviewed & are unremarkable except as noted in HPI & below Physical Exam Physical Exam: General: Alert and oriented x 3 in no acute distress. HEENT: Normocephalic Atraumatic. Inspection normal. Cranial Nerves 2-12 Grossly intact. Nares are clear. Neck is supple. Normal inspection of face. Normal inspection of neck. Neurologic: No deficits on inspection. Baseline for motor function and sensory. Psychologic: Normal affect. Respiratory: Nonlabored. No use of accessory muscles. No tachypnea or dyspnea. Cardiovascular: No tachycardia Skin: [place] and Dry. No rashes or visible lesions. Extremities: Moving without issues. No motor deficits on inspection Lymphatics: No edema Abdomen: Soft Non-distended. No rebound or guarding. Results & Data Vital Signs (Past 12 Hours) Vital Signs Temp Pulse Resp BP BP Pulse Ox O2 Del Method 05/20/24 10:52 36.9 C 79 18 161/83 H 95 Room Air 05/20/24 07:40 36.8 C 78 18 146/89 H 95 Room Air 05/20/24 04:51 37.8 C H 99 H 16 148/78 H 92 Room Air PG Care Time/CCT Total # of Minutes Spent Total Time Spent with Patient: Total time spent is greater than 50% in coordination of care (as documented) at patient's floor/unit and/or counseling patient: Coding Level of Care Code 72353 IN/OBS CONSULT LVL 5,80M Diagnoses Bladder cancer C67.9 Acute pyelonephritis N10 Fever R50.9 Fever type: unspecified Pyelonephritis N12 Overactive bladder N32.81 Breast cancer C50.919 History of basal cell carcinoma Z85.828 History of melanoma Z85.820 (3) Fever Fever type: unspecified Qualified Code(s): R50.9 - Fever, unspecified
[2024-05-20] MEDS ORDERED: ONDANSETRON INJ 2 MG/ML 2 ML VIAL IV PRN (12:56)
[2024-05-21 06:13] LABS: Basophils # (auto) 0.03 K/uL (0.00-0.20); Basophils % (auto) 0.4 %; Eosinophils # (auto) 0.19 K/uL (0.00-0.50); Eosinophils % (auto) 2.8 %; Hematocrit (blood only) 35.8 % (37.0-47.0); Hemoglobin 11.9 g/dl (12.0-16.0); Immature Granulocytes # (auto) 0.04 K/uL (0.01-0.20); Immature Granulocytes % (auto) 0.6 %; Lymphocytes # (auto) 0.78 K/uL (1.20-3.40); Lymphocytes % (auto) 11.3 %; Mean Corpuscular Hemoglobin 31.7 pg (25.0-34.0); Mean Corpuscular Hgb Conc 33.2 g/dL (32.0-36.0); Mean Corpuscular Volume 95.5 fL (80.0-100.0); Mean Platelet Volume 9.9 fL (9.4-12.4); Monocytes # (auto) 1.18 K/uL (0.11-0.59); Monocytes % (auto) 17.1 %; Neutrophils # (auto) 4.67 K/uL (1.40-6.50); Neutrophils % (auto) 67.8 %; Platelet Count 173 K/uL (130-400); RDW Coefficient of Variation 11.9 % (11.5-14.5); Red Blood Count 3.75 M/uL (4.20-5.40); White Blood Count 6.89 K/ul (4.8-10.8)
[2024-05-21 06:28] LABS: BUN Creatinine Ratio 13.3 (10-20); Calcium 9.1 mg/dl (8.6-10.3); Creatinine Clr Calc Pharmacy 63.5 ml/min; Magnesium 1.6 mg/dl (1.7-2.4); Phosphorus 3.2 mg/dl (2.5-4.9); Potassium 3.5 mmol/L (3.5-5.1)
[2024-05-21] MEDS: MAGNESIUM OXIDE 400 MG TAB PO ONE (09:08)
--- NOTE | 2024-05-21 12:12 | Hospitalist Progress Note ---
Date of Service May 21, 2024 Assessment & Plan (1) History of melanoma: (2) Breast cancer: (3) Hyperlipidemia: (4) HTN (hypertension): (5) Pyelonephritis: Plan Patient is an 84-year-old female with past medical history significant for bladder cancer s/p resection, right renal mass, Hx of breast cancer, Hx of melanoma, hypertension, hyperlipidemia presenting with generalized malaise and fevers at home after recent cystoscopy. Pyelonephritis Complicated UTI Patient follows with [facility] in [place] for history of bladder cancer and right renal mass S/p cystoscopy with bladder biopsy x 9 days ago in [place] UA suggestive of infection, urine Cx growing E coli CT abd/pelvis- concerning for R sided pyelonephritis Blood Cx x2 sets NGTD Lactate and procalcitonin normal Pt not currently septic Continue IV Cefepime x at least 48hrs per urology Urology consulted for acute infection in setting of pt's history noted above, appreciate recs. Dr Torrez noted the following: "Discussed extensively options moving forward. Agree with plans for supportive care IV hydration and broad-spectrum antibiotics. Discussed infections after instrumentation with cystoscopy and biopsy. Discussed possible developing infection and pyelonephritis. Discussed concerns and issues. Discussed continued monitoring and coverage. Reviewed extensively options moving forward...If patient does developing worsening issues or if signs of obstruction especially with the developing right pyelo could consider possible stent placement versus continued observation...Patient has been considering setting up urologic care in [place] as she now lives in the area and travel to [place] has become more difficult. Was on yearly cystoscopy with last bladder lesion in 2020. Did have biopsy at last visit and will need to assess findings on pathology...Can Plan followup in office in next few weeks after clearing of infection...Likely 48-72 hours of IV antibiotics and await full culture results to de-esculate." 48hrs of Rx ends on 05/22...anticipating discharge then Continue to monitor Hypertension Continue amlodipine Hyperlipidemia Continue statin Hx breast CA: Hold anastrozole for now until infection clears Anxiety xanax prn Diet: HH DVT prophylaxis: Lovenox SQ Dispo: downgraded to med/surg Admission and Anticipated Discharge Date Admission Date: May 19, 2024 Subjective patient was seen multiple times throughout the day. in the a.m. stated that she was feeling hot and feverish, wanted a shower. Later called back to the room with and daughter at bedside. Update provided. Patient alert and oriented x 3 again asking about the plan. Discussion of urology's recommendations for at least 48 hours of IV antibiotics and close follow-up. Patient's concerned about needed repeat of ultrasound of the kidney that was supposed to be scheduled for tomorrow. Review of Systems Review of Systems: All systems reviewed & are unremarkable except as noted in Subjective Physical Exam Physical Exam: General: Alert, oriented. No acute distress Psych: Appropriate mood and affect HEENT: NC/AT CV: RRR Resp: Breath sounds clear bilaterally, no increased effort of breathing. Abdomen: Soft, tender in LLQ and RLQ Extremities: No edema in lower extremities bilaterally. Results & Data Results & Data Vital Signs (Past 12 Hours) Vital Signs Temp Pulse Pulse Resp BP BP Pulse Ox 05/21/24 08:00 85 05/21/24 06:59 37.4 C 81 18 158/65 H 94 05/21/24 03:27 36.5 C 67 16 130/70 93 O2 Del Method 05/21/24 08:00 05/21/24 06:59 Room Air 05/21/24 03:27 Room Air
[2024-05-21] MEDS: ALPRAZolam 0.25 MG TABLET PO STA (13:53)
[2024-05-21] MEDS ORDERED: PROMETHAZINE 6.25 MG/50.25 ML BAG IV PRN (19:55)
[2024-05-21] MEDS: LORATADINE 10 MG TAB PO ONE (20:16)
[2024-05-21] MEDS: diphenhydrAMINE 2%/ZINC 0.1% CREAM 28.4GM TUBE EXT PRN (20:18)
[2024-05-21] MEDS: CIPROFLOXACIN / D5W 400 MG/200 ML BAG IV SCH (20:25)
[2024-05-22 06:29] LABS: Basophils # (auto) 0.02 K/uL (0.00-0.20); Basophils % (auto) 0.3 %; Eosinophils # (auto) 0.22 K/uL (0.00-0.50); Eosinophils % (auto) 3.3 %; Hematocrit (blood only) 36.2 % (37.0-47.0); Hemoglobin 12.3 g/dl (12.0-16.0); Immature Granulocytes # (auto) 0.03 K/uL (0.01-0.20); Immature Granulocytes % (auto) 0.5 %; Lymphocytes # (auto) 1.32 K/uL (1.20-3.40); Lymphocytes % (auto) 19.8 %; Mean Corpuscular Hemoglobin 31.5 pg (25.0-34.0); Mean Corpuscular Volume 92.8 fL (80.0-100.0); Mean Platelet Volume 9.8 fL (9.4-12.4); Monocytes # (auto) 0.83 K/uL (0.11-0.59); Monocytes % (auto) 12.5 %; Neutrophils # (auto) 4.23 K/uL (1.40-6.50); Neutrophils % (auto) 63.6 %; Platelet Count 220 K/uL (130-400); RDW Coefficient of Variation 11.8 % (11.5-14.5); RDW Standard Deviation 39.8 fL (36.4-46.3); White Blood Count 6.65 K/ul (4.8-10.8)
[2024-05-22 06:48] LABS: BUN Creatinine Ratio 15.3 (10-20); Calcium 9.6 mg/dl (8.6-10.3); Creatinine Clr Calc Pharmacy 64.6 ml/min; Magnesium 1.7 mg/dl (1.7-2.4); Phosphorus 3.8 mg/dl (2.5-4.9); Potassium 3.5 mmol/L (3.5-5.1)
[2024-05-22 08:00] VITALS: RESP 18; TEMP 98.1; O2SAT 93
--- NOTE | 2024-05-22 09:26 | Discharge Summary ---
Discharge Summary Date of Service May 22, 2024 Principal Dx & Hospital Course #1 = Principal Diagnosis (1) History of melanoma: (2) Breast cancer: (3) Hyperlipidemia: (4) HTN (hypertension): (5) Pyelonephritis: Plan Patient is an 84-year-old female with past medical history significant for bladder cancer s/p resection, right renal mass, Hx of breast cancer, Hx of melanoma, hypertension, hyperlipidemia presenting with generalized malaise and fevers at home after recent cystoscopy. Pyelonephritis Complicated UTI Patient follows with [facility] in [place] for history of bladder cancer and right renal mass S/p cystoscopy with bladder biopsy x 9 days ago in [place] UA suggestive of infection, urine Cx grew E coli resistant to Augmentin, ampicillin, Unasyn. CT abd/pelvis- concerning for R sided pyelonephritis Blood Cx x2 sets NGTD Lactate and procalcitonin normal Pt not septic Urology consulted for acute infection in setting of pt's history noted above, appreciate recs. Dr Magdaleno Torrez noted the following: "Discussed extensively options moving forward. Agree with plans for supportive care IV hydration and broad-spectrum antibiotics. Discussed infections after instrumentation with cystoscopy and biopsy. Discussed possible developing infection and pyelonephritis. Discussed concerns and issues. Discussed continued monitoring and coverage. Reviewed extensively options moving forward...If patient does developing worsening issues or if signs of obstruction especially with the developing right pyelo could consider possible stent placement versus continued observation...Patient has been considering setting up urologic care in [place] as she now lives in the area and travel to [place] has become more difficult. Was on yearly cystoscopy with last bladder lesion in 2020. Did have biopsy at last visit and will need to assess findings on pathology...Can Plan followup in office in next few weeks after clearing of infection...Likely 48-72 hours of IV antibiotics and await full culture results to de-esculate." Was treated with IV Cefepime for 48hrs per urology and transitioned to ciprofloxacin 500mg BID to complete 7 days of treatment. Hypertension Continue amlodipine Hyperlipidemia Continue statin Hx breast CA: Hold anastrozole for now until infection clears resume on discharge Anxiety xanax prn while hospitalized PCP follow up Back pain ibuprofen prn, patient advised on discharge can alternate with Tylenol Notes For Next Care Provider Please ensure follow-up locally with the urology office of Dr. Magdaleno Torrez Please ensure rescheduling of needed renal ultrasound for further monitoring per patient's urologist from [place]. Patient apparently missed this scheduled imaging appointment while hospitalized Medication Changes From Visit Ciprofloxacin 500 mg twice daily for 5 more days Ibuprofen 400 mg every 8 hours as needed for pain Admission HPI Per Admitting Provider The patient is a 84-year-old female with a past medical history of bladder cancer, breast cancerboth in remission, on anastrozole, HTN, HLD, migraines who presents to the ED today on 06/08 with complaints of fevers and flank pain x 2 days. Report 9 days ago having a cystoscopy with a bladder biopsy completed in [facility] For surveillance for her history of bladder cancer. Reported feeling okay over the past week but over the past few days started developing right flank pain, feeling weaker and fatigued, and had a Tmax of 102 at home. She otherwise denies any abdominal pain/nausea/vomiting/diarrhea. She denies any pain with urination. On arrival to the ED, her labs are fairly unremarkable, her UA was grossly positive Her abdominal/pelvis CT showed bilateral pyelonephritis, she was given IV ceftriaxone and IV fluids in the ED and will be admitted to the hospital for further management of presumed UTI Admission Exam Per Admitting Provider Constitutional: WD/WN, vitals as above Eyes: PERRL, conjunctivae normal, anicteric sclerae ENMT: external ear and nose normal, oropharynx normal Neck: trachea midline, no thyromegaly Respiratory: normal respiratory effort, lungs clear to auscultation Cardiovascular: RRR, no murmur, no edema Chest (Breasts): normal inspection/palpation of breasts Gastrointestinal (Abdomen): normal bowel sounds, soft, nontender, no hepatosplenomegaly (Flank pain) Inspection/Auscultation: abdomen normal to inspection and normal bowel sounds Percussion/Palpation: abdomen nontender and no guarding Musculoskeletal: no cyanosis or clubbing, extremities motor strength 5/5 Skin: no rashes, warm and dry Neurologic: PERRL, EOMI, accommodation nl, no face palsy, no dysarthria Psychiatric: A+Ox3, euthymic affect Lymphatic: no cervical or axillary lymphadenopathy Discharge Exam General: Alert, oriented. No acute distress Psych: Appropriate mood and affect HEENT: NC/AT CV: RRR Resp: Breath sounds clear bilaterally, no increased effort of breathing. Abdomen: Soft, nontender Extremities: No edema in lower extremities bilaterally. Updated Medication List Medication Instructions Recorded Confirmed Type amlodipine 2.5 mg tablet 2.5 mg PO QAM 11/06/20 05/19/24 History anastrozole 1 mg tablet 1 mg PO HS 11/06/20 05/19/24 History epwjoya-wtlzstclszvaf-qnstbthe 250 1 tab PO UD PRN Headache 11/06/20 05/19/24 History mg-250 mg-65 mg tablet (Migraine Formula) atorvastatin 40 mg tablet 40 mg PO HS 11/06/20 05/19/24 History biotin 1,000 mcg chewable tablet 1,000 mcg PO DAILY 11/06/20 05/19/24 History calcium carbonate (Tums) 200 mg PO UD PRN Heartburn 11/06/20 05/19/24 History diphenhydramine HCl 50 mg capsule 25 mg PO UD PRN Sleep 11/06/20 05/19/24 History (Unisom SleepGels) psyllium husk 3.4 gram/5.4 gram 2 tsp PO QAM 11/06/20 05/19/24 History oral powder (Metamucil) solifenacin 5 mg tablet 5 mg PO QAM 11/06/20 05/19/24 History Lactobacil.acidophilus-Bifido.animalis 1 cap PO DAILY 10/03/22 05/19/24 History 5 billion cell sprinkle capsule (Probiotic) acetaminophen 500 mg tablet 500 - 1,000 mg PO BID PRN Pain 10/03/22 05/19/24 History ciprofloxacin HCl 500 mg tablet 500 mg PO BID #9 tabs 05/22/24 Rx ibuprofen 400 mg tablet 400 mg PO Q8H PRN pain #30 tabs 05/22/24 Rx Hospital Stay Data Consultations 05/19/24 18:04 ED Decision to Admit Stat 05/20/24 09:42 Consult Urology Routine Diagnostic Imagining Performed 05/19/24 15:23 CT abd pelvis wo con Stat Chest X-Ray 05/19/24 14:21 XR chest 1V not portable CLINICAL HISTORY: Sepsis. COMPARISON STUDY: Chest radiograph August 07, 2019. FINDINGS: Lung volumes are normal. There is no pneumothorax or pleural effusion. There is no consolidation to suggest pneumonia. Several calcified nodules are benign. These are unchanged. There are right breast the left maxillary surgical clips. Cardiomegaly is unchanged. No evidence for pulmonary edema. IMPRESSION: No acute cardiopulmonary findings. ACT 112: Negative or not required by law. Electronically signed by: Gee Escobar M.D. 05/19/2024 3:58 PM Abdomen/Pelvis CT 05/19/24 15:23 CT SCAN OF THE ABDOMEN AND PELVIS WITHOUT IV CONTRAST CLINICAL HISTORY: Flank pain. Fever. COMPARISON STUDY: No priors. TECHNIQUE: CT scan of the abdomen and pelvis is performed from the lung bases to the proximal femora. Images are reviewed in the axial, sagittal, and coronal planes. IV contrast was not administered for this examination. A dose lowering technique was utilized adhering to the principles of ALARA. CT DOSE: 751.06 mGy.cm FINDINGS: Lung bases: The heart is top normal in size and without pericardial effusion. There is bibasilar scarring/atelectasis. No airspace consolidation or pleural effusion is seen. A small hiatal hernia is noted. Liver: The unenhanced liver is normal in size, contour, and attenuation. There is no intrahepatic biliary ductal dilatation. Gallbladder: Unremarkable. Spleen: Normal in size and attenuation. Pancreas: The unenhanced pancreas is mildly atrophic and grossly unremarkable. Adrenal glands: Unremarkable. Kidneys: The unenhanced kidneys are normal in size and without hydronephrosis. No renal calculi are identified and there is no ureteral stone. There is urothelial thickening within the right renal pelvis and ureter with right-sided perinephric stranding and fluid. A 10 mm cyst is noted on the left. Abdominal vasculature: The abdominal aorta is normal in course and caliber noting advanced atherosclerotic calcification. Bowel: There is moderate to advanced colonic diverticulosis without CT evidence of acute diverticulitis. No bowel obstruction is seen. Mild/moderate fecal retention is seen throughout the colon. The appendix is not visualized. Peritoneum: There is no intraperitoneal free air or abdominal ascites. There is a small fat-containing umbilical hernia. Lymphadenopathy: None. Pelvic viscera: The bladder wall is thickened and there is pericystic duration. The uterus is surgically absent. No adnexal lesion is seen. Skeletal structures: The skeletal structures are osteopenic. There is advanced lumbosacral spondylosis and mild scoliosis. Sclerotic change is noted in the sacroiliac joints. Arthritic change is noted in the hips. No lytic or blastic lesions are seen. IMPRESSION: 1. Findings suggest cystitis with ascending urinary tract infection/pyelonephritis on the right. Correlate with clinical findings and urinalysis. 2. No renal calculi are identified. 3. Colonic diverticulosis without CT evidence of acute diverticulitis. 4. Additional findings as above. ACT 112: Negative or not required by law. Electronically signed by: Hebert Jean M.D. 05/19/2024 4:50 PM Discharge Instructions Given to Patient (Per Discharging Provider) Shanti, You were admitted and treated for an infection of your urinary tract. Please continue with the antibiotic ciprofloxacin for an additional 5 days starting tonight. Please keep close follow-up with Dr. Magdaleno Hinojosa's urology office locally as previously discussed with the urologist. The office will contact you to schedule that appointment, however if you have not heard from them please contact the [facility] physician group's urology office. Please continue taking ibuprofen as needed to help with the back pain with close follow-up with your primary care provider for any additional needs. You can also alternate ibuprofen with Tylenol as needed for additional pain control. Please keep close follow up with your primary care provider after discharge. Please do not hesitate to come back to the emergency room if your symptoms wors en or return. It was a pleasure taking care of you while you were here. Total Time Total Time Spent Total Time Spent (In Minutes): 65
[2024-05-22] MEDS: CIPROFLOXACIN 500 MG TAB PO STA (09:42)
[2024-05-22 10:32] VITALS: BP 151/77; PULSE 71
--- NOTE | 2024-05-23 05:36 | Coding Query ---
CODING QUERY To promote full compliance with coding requirements relating to patient care, provider participation is requested in all cases of certified professional coder uncertainty. Please assist us with the question(s) below: Coding Question(s): Pt admitted for Acute pyelonephritis , 9 days s/p cystoscopy and bladder bx. Please document, if known or suspected, the etiology of the pyelonephritis. Thanks for your help! Bertram Sheridan [employer] [facility] Physician's Response(s): unknown Principal Diagnosis: "that condition established after study, to be chiefly responsible for occasioning the admission of the patient to the hospital for care." Co-Existing Principal Diagnosis: "when two or more diagnoses equally meet the criteria for principal diagnosis as determined by the circumstances of admission, diagnostic work up, and/or therapy provided, and the Alphabetic Index, Tabular List, or another coding guideline does not provide sequencing direction, any one of the diagnoses may be sequenced first." "When the physician has documented what appears to be a current diagnosis in the body of the record, but has not included the diagnosis in the final diagnostic statement, the physician should be asked whether the diagnosis should be added." (Source [facility] 2 QTR90. p3-4) CHUY
== END 2024-05-22 10:58 | disposition home or self-care (01) | DRG 690 ==
LOC: ED 14:01 → SUATTDRO 19:31 → 2E 19:31